=== PATIENT | male | born 1985 | race Caucasian/White ===

== ENCOUNTER 2023-09-12 18:15 | Emergency (ER) | payer BC, SELFPAY ==
--- NOTE | ~2023-09-12 | XR_ITS ---
EXAMINATION: XR chest 2V 09/12/2023 18:36 INDICATION: Cough and shortness of breath. Wheezing. PROCEDURE: 2 view chest COMPARISON: 04/08/2019 FINDINGS: The lungs are clear. The lungs are hyperinflated which is consistent with, but not diagnost ic of chronic obstructive pulmonary disease. The cardiomediastinal silhouette is within normal limits . There are no pleural effusions. There is no pneumothorax suspected. IMPRESSION: 1: NO ACUTE CARDIOPULMONARY DISEASE. Reviewed, dictated and finalized at location A.
--- NOTE | 2023-09-12 18:21 | ED.URI ---
HPI - URI/Sore Throat General Chief Complaint: Upper Respiratory Infection Stated Complaint: Shortness of breath;Cough Source: patient and RN notes reviewed Mode of arrival: ambulatory Limitations: no limitations History of Present Illness HPI Narrative: Patient is a 38-year-old male who presents to the [facility] with complaints of intermittent shortness of breath for the past month and a half. His shortness of breath worsens with exertion. He states that the shortness of breath will be present for about 5-6 days before residing and then starting again a few days later. Patient states that he becomes significantly short of breath even with just walking to the bathroom. He reports a frequent productive cough with yellow sputum for the past month. He denies known fevers or chills. Denies chest pain. States that he will feel chest tightness when he is extremely short of breath. He denies nasal congestion, sore throat, headache. He admits to smoking a pack of cigarettes a day. His respirations are unlabored but they are auditory wheezes present upon [facility] arrival. He denies any respiratory history. Related Data Allergies Allergy/AdvReac Type Severity Reaction Status Date / Time No Known Allergies Allergy Unverified 04/08/19 13:24 Review of Systems Review of Systems: CONSTITUTIONAL: Denies fever, chills, or sweats. EYES: Denies visual changes, redness, or discharge. ENT: Denies otalgia and sore throat CARDIOVASCULAR: Denies chest pain, palpitations, or edema. RESPIRATORY: Reports cough or dyspnea. GASTROINTESTINAL: Denies abdominal pain, nausea, vomiting, or diarrhea. GENITOURINARY: Denies dysuria or hematuria. SKIN: Denies rash or itching. MUSCULOSKELETAL: Denies back pain, joint pain, or myalgia. NEUROLOGIC: Denies headache, numbness, or weakness. Pertinent positives per HPI. [facility] Family History Family History Other Family history of malignant neoplasm Social History Social History Smoking status: Heavy tobacco smoker Alcohol intake: never Comments At the time of my signature, I reviewed and agree with the nursing past medical, surgical, social, and family history. There is no relevant family history pertinent to the patient complaint. Exam Narrative: GENERAL: This is a well-nourished, well-developed patient. HEAD: normocephalic, atraumatic. EYES: Sclera clear/white. Vision is grossly intact. EARS: External ears normal. Hearing grossly intact. NOSE: External nose normal with no obvious nasal discharge, nares without redness, no rhinorrhea. THROAT: Mucous membranes moist, posterior pharynx clear. NECK: Neck supple, non-tender without lymphadenopathy, masses or thyromegaly. CARDIOVASCULAR: Regular rate and rhythm without murmurs, gallops, or rubs. RESPIRATORY: Inspiratory and expiratory wheezes bilaterally. Decreased air movement. GASTROINTESTINAL: Abdomen soft, non-tender, nondistended. Bowel sounds are active. No hepato-splenomegaly, or palpable masses. No guarding. SKIN: Pale. Warm, intact with no suspicious lesions or rash, good texture and turgor. NEURO: awake, alert, and oriented to person, place and time. There were no obvious focal neurologic abnormalities. EXTREMITIES: No clubbing, cyanosis, or edema. No joint tenderness, effusion, or edema noted. Course Course Level of Care: Express Care Visit Vital Signs Vital signs: Vital Signs Temperature 98.1 F 09/12/23 18:25 Pulse Rate 114 H 09/12/23 18:25 Respiratory Rate 16 09/12/23 18:25 Blood Pressure 119/86 09/12/23 18:25 Pulse Oximetry 96 09/12/23 18:25 Temperature 98.1 F 09/12/23 18:25 Pulse Rate 112 H 09/12/23 18:46 Respiratory Rate 20 09/12/23 18:46 Blood Pressure 119/86 09/12/23 18:25 Pulse Oximetry 91 09/12/23 18:46 Oxygen Delivery Room Air 09/12/23 18:46 Reviewed Tra
[2023-09-12 18:25] VITALS: BP 119/86; PULSE 114; RESP 16; TEMP 36.7; O2SAT 96
[2023-09-12] MEDS: methylPREDNISolone SOD SUCC 125 MG VIAL 80 MG IM (18:38)
[2023-09-12 18:39] VITALS: PULSE 109; RESP 22; O2SAT 89
[2023-09-12] MEDS: ALBUTEROL SULFATE NEB 2.5 MG/3 ML INH INHALATION (18:39)
[2023-09-12 18:46] VITALS: PULSE 112; RESP 20; O2SAT 91
[2023-09-12 18:57] VITALS: PULSE 112; RESP 22; O2SAT 91
--- NOTE | 2023-09-12 19:13 | PC.NURSE ---
1910 PARENTS HERE TO PER DIEM PT. PT AMBULATED TO CAR ACCOMPANIED WITH RN. INSTRUCTIONS TO PARENTS TO GO DIRECTLY TO ER. MOTHER DRIVING PATIENT. FATHER FOLLOWING. VOICED UNDERSTANDING. PT DENIED AMBULANCE TRANSFER.
== END 2023-09-12 19:12 | disposition short-term general hospital (02) ==
PROVIDERS: Emergency Provider Nurse Practitioner
DX: R06.02 Shortness of breath (principal); F17.200 Nicotine dependence, unspecified, uncomplicated
CPT/HCPCS: 71046; 94640; 96372; 99213; G0463; J2930

== ENCOUNTER 2023-09-12 19:30 | Emergency (ER) | payer BC, SELFPAY ==
[2023-09-12] VITALS (16 sets, daily range): BP systolic 127–136; BP diastolic 81–96; PULSE 96–112; RESP 11–20; TEMP 36.9; O2SAT 90–96
--- NOTE | ~2023-09-12 | XR_ITS ---
EXAMINATION: XR chest 2V 09/12/2023 20:09 INDICATION: Shortness of breath. PROCEDURE: 2 view chest COMPARISON: 09/12/2023 FINDINGS: The lungs are clear. The lungs are hyperinflated which is consistent with, but not diagnost ic of chronic obstructive pulmonary disease. The cardiomediastinal silhouette is within normal limits . There are no pleural effusions. There is no pneumothorax suspected. IMPRESSION: 1: NO ACUTE CARDIOPULMONARY DISEASE. Reviewed, dictated and finalized at location A.
--- NOTE | ~2023-09-12 | CT_ITS ---
EXAMINATION: CTA chest PE protocol DATE: 09/12/2023 21:00 CDT INDICATION: Dyspnea. Elevated d-dimer. TECHNIQUE: Computed tomographic angiography (CTA) of the chest was performed with 100 mL Omnipaque-35 0 intravenous contrast. The dose-length product was 449.85 mGy-cm. Maximum intensity projection 3D-re constructions of the aorta and other arteries were constructed by the technologist on a separate work station. COMPARISON: None. FINDINGS: No endobronchial lesions. No focal airspace consolidation. No focal airspace consolidation. No significant vascular abnormality. No lymphadenopathy. Study is technically adequate without evide nce for pulmonary embolism. Mild thoracic spondylosis with chronic wedge shaped appearance to midthor acic vertebra. IMPRESSION: 1. No acute cardiopulmonary disease. No evidence for pulmonary embolism. Reviewed, dictated and finalized at location A.
--- NOTE | 2023-09-12 19:35 | ECG_ITS ---
Measurements Intervals [place] Rate: 105 P: 78 VA: 108 QRS: 83 QRSD: 99 T: 64 QT: 353 QTc: 467 Interpretive Statements SINUS TACHYCARDIA WITH SHORT VA INTERVAL POSSIBLE RIGHT ATRIAL ENLARGEMENT NONSPECIFIC ST & T-WAVE ABNORMALITY- ANTEROLAT/INF LEADS BASELINE ARTIFACT- III, AVR, AVL, AVF ABNORMAL ECG COMPARED TO ECG 04/08/2019 15:21:07 [address]IN[address]CARD[address] NOW PRESENT ST-T WAVE ABNORMALITY NOW PRESENT Electronically Signed On 09-13-2023 7:48:49 CDT by Rodolfo Finnegan D.O.
[2023-09-12 20:07] LABS: Basophils Absolute Auto 0.1 K/mm3 (0.0-0.1); Basophils Percent Auto 1.3 % (0.2-1.2); Eosinophils Absolute Auto 0.1 K/mm3 (0-0.3); Eosinophils Percent Auto 1.1 % (0-4.4); Hematocrit 50.7 % (42.0-52.0); Hemoglobin 16.6 g/dL (14.0-18.0); Immature Granulocyte Absolute 0.05 K/mm3 (0.00-0.031); Immature Granulocyte Percent A 0.5 % (0-0.5); Lymphocytes Absolute Auto 0.93 K/mm3 (0.9-3.2); Lymphocytes Percent Auto 9.6 % (18.3-44.2); Mean Corpuscular HGB Conc 32.7 g/dl (32-36); Mean Corpuscular Hemoglobin 32.2 pg (26-34); Mean Corpuscular Volume 98.4 fl (80-100); Monocytes Absolute Auto 0.5 K/mm3 (0.1-0.6); Neutrophils Percent Auto 82.5 % (45.5-73.1); Platelet Count Result 328 k/mm3 (150-375); Red Blood Count 5.15 M/mm3 (4.6-6.20); Red Cell Distribution Width 13.3 % (11.5-14.5); White Blood Count 9.7 K/mm3 (4.5-10.0)
[2023-09-12 20:17] LABS: Alanine Aminotransferase 16 U/L (6-50); Alkaline Phosphatase 84 U/L (38-126); Anion Gap 16 mmol/L (8-16); Aspartate Amino Transferase 24 U/L (17-59); Bilirubin,Total 0.9 mg/dL (0.2-1.3); Blood Urea Nitrogen 10 mg/dL (9-20); Calcium 10.1 mg/dL (8.4-10.2); Carbon Dioxide 21 mmol/L (22-30); Chloride 101 mmol/L (98-107); Estimated CRCL calculation 127 ml/min; Estimated Glomerular Filt Rate > 60; Glucose 123 mg/dL (65-110); Potassium 3.7 mmol/L (3.4-5.0); Sodium 138 mmol/L (137-145)
[2023-09-12 20:26] LABS: D Dimer 0.56 ug/mL (<0.48)
--- NOTE | 2023-09-12 20:51 | ED.GENADULT ---
HPI - General Adult General Chief complaint: Shortness of Breath/Dyspnea <Bennie Barriga PA-C - Last Filed: 09/13/23 01:04> Stated complaint: sent from with SOB <FELI Zaragoza Last Filed: 09/13/23 01:04> Time Seen by Provider: 09/12/23 19:40 <Bennie Barriga PA-C - Last Filed: 09/13/23 01:04> Source: patient <FELI Zaragoza Last Filed: 09/13/23 01:04> Mode of arrival: ambulatory <FELI Zaragoza Last Filed: 09/13/23 01:04> Limitations: no limitations <FELI Zaragoza Last Filed: 09/13/23 01:04> History of Present Illness HPI narrative: This is a 38-year-old male who presents to the ED with chief complaint of shortness of breath on exertion for the past 6 weeks and worse in the last week. Reports he feels wheezing on occasion. He is a long-term smoker. Smokes at least 1 pack/day. Reports some recent cough as well. He was seen at urgent care today and given breathing treatments with decent relief of symptoms but was desaturating on walking test into the 88 range, so he was referred here. Denies palpitations, chest pain, leg swelling, orthopnea, abdominal pain. <Bennie Barriga PA-C - Last Filed: 09/13/23 01:04> Related Data Allergies/adverse reactions: Allergies Allergy/AdvReac Type Severity Reaction Status Date / Time No Known Allergies Allergy Unverified 09/12/23 19:30 <Bennie Barriga PA-C - Last Filed: 09/13/23 01:04> Review of Systems Review of Systems: All systems as dictated in HPI <Bennie Barriga PA-C - Last Filed: 09/13/23 01:04> [facility] Family History Family History: Family History Other Family history of malignant neoplasm <FELI Zaragoza Last Filed: 09/13/23 01:04> Social History Social History: Social History Smoking status: Heavy tobacco smoker Alcohol intake: never <Bennie Barriga PA-C - Last Filed: 09/13/23 01:04> Exam Narrative: GENERAL: Well-appearing, well-nourished, and in no acute distress. HEAD: Normocephalic, atraumatic. EYES: PERRLA and EOMI. ENT: Nares clear, no rhinorrhea or epistaxis. Mucous membranes moist. Mildly erythematous posterior oropharynx. Oropharynx without tonsillar hypertrophy exudate or other lesions. NECK: Supple. No adenopathy or masses. CHEST: No respiratory distress. Faint wheeze heard in the expiratory phase of the left lower lung field, otherwise no adventitious breath sounds heard. Saturating 94% on room air. HEART: Regular rate and rhythm. No murmur heard. Normal peripheral pulses. ABDOMEN: Soft, nontender, nondistended, normal active bowel sounds. MSK: Normal range of motion. No edema. SKIN: Warm, dry, no rash. NEURO: Alert and oriented x3. No focal deficits. PSYCH: Normal mood and affect. <Bennie Barriga PA-C - Last Filed: 09/13/23 01:04> Course SPRAYER MACHINE/PA Physician Supervision This visit was performed by both a physician and an APC. I performed all aspects of the MDM as documented. <Ania Villanueva MD - Last Filed: 09/13/23 00:08> Vital Signs Vital signs: Vital Signs Temperature 98.4 F 09/12/23 19:34 Pulse Rate 112 H 09/12/23 19:34 Respiratory Rate 20 09/12/23 19:34 Blood Pressure 136/86 09/12/23 19:34 Pulse Oximetry 93 09/12/23 19:34 Oxygen Delivery Room Air 09/12/23 19:34 Temperature 98.4 F 09/12/23 19:34 Pulse Rate 104 H 09/12/23 22:30 Respiratory Rate 18 09/12/23 23:05 Blood Pressure 129/81 09/12/23 20:12 Pulse Oximetry 96 09/12/23 22:45 Oxygen Delivery Room Air 09/12/23 19:34 <Bennie Barriga PA-C - Last Filed: 09/13/23 01:04> Vital Signs Temperature 98.4 F 09/12/23 19:34 Pulse Rate 112 H 09/12/23 19:34 Respiratory Rate 20 09/12/23 19:34 Blood Pressure 136/86 09/12/23 19:34 Pulse Oximetry 93 09/12/23 19:34 Oxygen Delivery Room Air 09/12/23
[2023-09-12 22:32] LABS: Influenza A QL RT-PCR Negative (Negative); Influenza B QL RT-PCR Negative (Negative); RSV RNA, RT-PCR Negative (Negative); SARS-CoV-2 RNA PCR Negative (Negative)
--- NOTE | 2023-09-12 22:44 | PC.NURSE ---
walking oxygen assessment patient oxygen dropped to 87%. Bennie Barriga notified. patient felt slightly sob towards end of walk around nursing station.
== END 2023-09-12 23:41 | disposition left against medical advice (07) ==
PROVIDERS: Student in an Organized Health Care Education/Training Program; Emergency Provider Physician Assistant
DX: R06.02 Shortness of breath (principal); Z20.822 Contact with and (suspected) exposure to COVID-19; F17.210 Nicotine dependence, cigarettes, uncomplicated; R00.0 Tachycardia, unspecified; R94.31 Abnormal electrocardiogram [ECG] [EKG]
CPT/HCPCS: 36415; 71046; 71275; 80053; 85025; 85380; 87637; 93005; 94640; 96372; 99284; J2930; Q9967

== ENCOUNTER 2024-10-05 20:28 | Emergency (ER) | payer OTHER, SELFPAY ==
[2024-10-05] VITALS (17 sets, daily range): BP systolic 94–133; BP diastolic 58–98; PULSE 80–97; RESP 12–30; TEMP 36.7–36.8; O2SAT 92–100
--- NOTE | ~2024-10-05 | XR_ITS ---
EXAM: XR foot RT min 3V DATE: 10/05/2024 22:53 HISTORY: injury . COMPARISON: None available. FINDINGS: Subjectively decreased mineralization. Transverse fracture at the neck of the right fourth metatarsal with 3 mm medial displacement and minimal angulation. Oblique fracture of the neck of the right fifth metatarsal with 3 mm anteromedial displacement and minimal angulation. No lytic or blast ic lesion. Hallux valgus. Mild degenerative change at the first MTP joint. No erosion or periosteal c hange. Soft tissues within normal limits. IMPRESSION: Mildly displaced fractures of the distal right fourth and fifth metatarsals. Reviewed, dictated and finalized at location K. [facility] AND HEARING CLINIC DIRECTOR IMPRESSION: Mildly displaced fractures of the distal right fourth and fifth met atarsals.
--- NOTE | ~2024-10-05 | XR_ITS ---
EXAMINATION: XR chest 1V portable Exam Date/Time: 10/05/2024 22:47 INTERVENTION ANALYST HISTORY: sob Comparison: 09/12/2023. RESULT: Lines, tubes, and devices: None. Lungs and pleura: Clear. Cardiomediastinal silhouette: Stable. Other: No acute osseous or upper abdominal finding. IMPRESSION: No acute cardiopulmonary process. Reviewed, dictated and finalized at location K. RVENTION ANALYST
--- NOTE | 2024-10-05 21:49 | PC.NURSE ---
After triage pt's father stated he was passed out at home and out of it prior to coming to ED. Dad is concerned for potential drug use as pt is a recovering heroin addict.
--- NOTE | 2024-10-05 22:35 | ECG_ITS ---
Test Date: 2024-10-05 23:08:14 Measurements Intervals [place] Rate: 85 P: 71 [place]: 157 QRS: 67 QRSD: 84 T: 53 QT: 384 QTc: 458 Interpretive Statements SINUS RHYTHM POSSIBLE LEFT ATRIAL ENLARGEMENT POSSIBLE RIGHT VENTRICULAR CONDUCTION DELAY BORDERLINE ST-T WAVE ABNORMALITY- ANT/INF LEADS BORDERLINE ECG No previous ECG available for comparison Electronically Signed On 10-06-2024 06:07:03 5TH GRADE TEACHER by Rodolfo Finnegan D.O.
--- NOTE | 2024-10-05 22:54 | ED_ITS ---
HPI - General Adult General Chief complaint: Shortness of Breath/Dyspnea Stated complaint: SOB, SOB, ran out of home oxygen Time Seen by Provider: 10/05/24 22:10 History of Present Illness HPI narrative: Patient is a 39-year-old male who presents to the emergency department this evening complaining of a shortness of breath and right foot pain. Patient states that he does have a history of COPD which she was diagnosed with this year and states that he uses inhalers at home along with albuterol as needed and has some home oxygen which she was only as needed. Patient states that 4 days ago he rolled his right foot and has been having some pain to the right foot. Patient does have some bruising noted to the distal aspect of the lateral right foot. Patient admits that he has been walking on the foot but it does elicit pain. He is currently denying any chest pain, nausea, vomiting, abdominal pain, and denies any additional symptoms or concerns at this time. Patient was noted to be satting 96% on room air during triage. Related Data Allergies Allergy/AdvReac Type Severity Reaction Status Date / Time No Known Allergies Allergy Verified 10/05/24 22:36 Review of Systems Review of Systems: All systems are reviewed and are negative unless stated otherwise in the HPI. [facility] Family History Family History Other Family history of malignant neoplasm Social History Social History Smoking status: Heavy tobacco smoker Alcohol intake: never Exam Narrative: General: Alert, awake, afebrile, in no acute distress. HEENT: PERRL, no rhinorrhea, no post nasal drip, oropharynx clear. Neck: Trachea midline, no JVD, no lymphadenopathy. Cardiovascular: Regular rate and rhythm, no murmurs, rubs or gallops, no peripheral edema. Respiratory: Clear to auscultation bilaterally, no tachypnea, no wheezing, no rhonchi, no rubs, no respiratory distress. Abdomen: Soft, nontender, nondistended, no rebound, no guarding, no peritoneal signs. Musculoskeletal: No joint swelling or deformity, normal muscle tone, ecchymosis and tenderness to palpation noted over the neck of the 4th and 5th right metatarsals. Skin: No rashes or petechia, no signs of infection. Psychiatric: Alert and oriented, normal behavior and judgment for situation. Neurological: Alert and oriented to person, place, and time. Follows all commands. No focal deficits, speech is clear and fluent. Course Vital Signs Vital signs: Vital Signs Temperature 98.1 F 10/05/24 20:30 Pulse Rate 86 10/05/24 20:30 Respiratory Rate 16 10/05/24 20:30 Blood Pressure 114/92 H 10/05/24 20:30 Pulse Oximetry 96 10/05/24 20:30 Oxygen Delivery Room Air 10/05/24 20:30 Temperature 98.3 F 10/05/24 22:07 Pulse Rate 91 10/05/24 23:54 Respiratory Rate 20 10/05/24 23:54 Blood Pressure 101/73 10/05/24 23:54 Pulse Oximetry 100 10/05/24 23:16 Oxygen Delivery Room Air 10/05/24 22:31 Medical Decision Making MDM Narrative Medical decision making narrative: The patient was evaluated by myself in the emergency department. History is obtained from patient who is an independent historian and physical exam was performed. External medical records were reviewed at this time. IV was established and pertinent tests were ordered. Patient was administered DuoNeb breathing treatment and 125 mg of IV Solu- Medrol. Laboratory results obtained revealing no acute process. Imaging studies obtained included chest x-ray which was independently interpreted by me revealing no acute cardiopulmonary process, which is pending final radiology interpretation. Right foot x-rays were also obtained at this time and bili interpreted by me revealing mildly displaced fractures of the distal right 4th and 5th metatarsals over the metatarsal neck. Patient was placed in a posterior short leg splint at this time and informed that he will need to follow-up with orthopedics. Differential diagnosis considerations include COPD exacerbation, acute viral syndrome, infectious process such as pneumonia Comorbidities impacting this visit include history of COPD.. I have evaluated and discussed social determinants of health with the patient that could potentially impact subsequent diagnosis and treatment plans. On repeat assessment of the patient, reevaluation revealed that the patient is doing well and is in no acute distress. Patient symptoms have improved since he arrived to our emergency department. Repeat vital signs were all reviewed and noted to be stable. Patient has been able to maintain his O2 sats above 90% while ambulating. Differential diagnosis and treatment plan were discussed with the patient at bedside. Patient agrees with discussion and after shared medical decision making agrees with discharge. All questions were answered to the patient's satisfaction. Patient will follow up with his primary care physician and Orthopedics in 3-5 days. A script for Medrol Dosepak present patient's pharmacy and he was instructed to take as prescribed. Patient was provided with strict return precautions and instructed to return to the emergency department if any new or worsening symptoms develop. The patient was discharged in stable condition. Vital Signs Vital Signs: Vital Signs Temperature 98.1 F 10/05/24 20:30 Pulse Rate 86 10/05/24 20:30 Respiratory Rate 16 10/05/24 20:30 Blood Pressure 114/92 H 10/05/24 20:30 Pulse Oximetry 96 10/05/24 20:30 Oxygen Delivery Room Air 10/05/24 20:30 Temperature 98.3 F 10/05/24 22:07 Pulse Rate 91 10/05/24 23:54 Respiratory Rate 20 10/05/24 23:54 Blood Pressure 101/73 10/05/24 23:54 Pulse Oximetry 100 10/05/24 23:16 Oxygen Delivery Room Air 10/05/24 22:31 Lab Data 10/05/24 23:17 10/05/24 23:17 Labs: Lab Results 10/05/24 Range/Units 23:17 WBC 11.3 H (4.5-10.0) K/mm3 RBC 4.02 L (4.6-6.20) M/mm3 Hgb 13.1 L D (14.0-18.0) g/dL Hct 40.1 L (42.0-52.0) % MCV 99.8 (80-100) fl MCH 32.6 (26-34) pg MCHC 32.7 (32-36) g/dl RDW 13.2 (11.5-14.5) % Plt Count 320 (150-375) k/mm3 MPV 10.2 (7.4-10.4) fl Immature Gran % (Auto) 0.4 (0-0.5) % Neut % (Auto) 78.6 H (45.5-73.1) % Lymph % (Auto) 11.0 L (18.3-44.2) % [place] % (Auto) 7.3 (2.6-8.5) % Eos % (Auto) 1.9 (0-4.4) % Baso % (Auto) 0.8 (0.2-1.2) % Lymph # (Auto) 1.24 (0.9-3.2) K/mm3 [place] # (Auto) 0.8 H (0.1-0.6) K/mm3 Eos # (Auto) 0.2 (0-0.3) K/mm3 Baso # (Auto) 0.1 (0.0-0.1) K/mm3 Abs Immat Gran (auto) 0.04 H (0.00-0.031) K/mm3 Absolute Neuts (auto) 8.9 H (1.3-6.7) K/mm3 Absolute Nucleated RBC 0.000 (0.0-0.012) K/mm3 Nucleated RBC % 0.0 (0.0-0.2) % Sodium 141 (137-145) mmol/L Potassium 3.6 (3.4-5.0) mmol/L Chloride 108 H (98-107) mmol/L Carbon Dioxide 27 (22-30) mmol/L Anion Gap 6 (4-12) mmol/L BUN 9 (9-20) mg/dL Creatinine 0.60 L (0.7-1.3) mg/dL Estim Creat Clear Calc 153 ml/min Estimated GFR > 60 (59 - ) Glucose 98 (65-110) mg/dL Calcium 9.3 (8.4-10.2) mg/dL Total Bilirubin 1.0 (0.2-1.3) mg/dL AST 17 (17-59) U/L ALT 11 (6-50) U/L Alkaline Phosphatase 67 (38-126) U/L Total Protein 7.0 (6.3-8.2) g/dL Albumin 4.0 (3.5-5.1) g/dL Discharge Plan Discharge Clinical Impression: Foot fracture, right, COPD exacerbation Patient Disposition: Home, Self-Care Condition: Improved Instructions: Antibiotic Form, Foot Fracture in Adults (ED), COPD (Chronic Obstructive Pulmonary Disease) (DC) Additional Instructions: Please follow-up with your orthopedic surgeon you were provided with today regarding your right metatarsal fractures within the next 3-5 days. He replaced and a posterior short leg splint and instructed to maintain your right lower extremity as nonweightbearing until you follow-up with orthopedics. You also provided with a Medrol Dosepak to take for your COPD exacerbation and instructed to take as prescribed. Return to the emergency department if any new or worsening symptoms develop and follow-up with your primary care physician within the next 3-5 days. Prescriptions: New methylprednisolone [Medrol (Avtar)] 4 mg tablets,dose pack See Rx Instructions .ROUTE .COMPLEX Qty: 21 0RF Rx Instructions: orally per package directions No Action albuterol sulfate 90 mcg/actuation HFA aerosol inhaler 2 puff inhalation QID PRN (Reason: shortness of breath or wheezing) Qty: 6.7 0RF prednisone 20 mg tablet 40 mg PO DAILY 5 Days Qty: 10 0RF Follow-up/Referrals: PHYSICIAN,PERSONAL LINES ADVISOR [Primary Care Provider] - Jasvir Jean-Baptiste MD [Physician] - 1 Week Rubens Marin MD [Physician] - 3 Days Time of Disposition: 00:33
[2024-10-05] MEDS: IPRATROPIUM 0.5 MG/ALBUTEROL SULFATE 2.5 MG AMPUL.NEB 3 ML INHALATION (23:09)
[2024-10-05] MEDS: methylPREDNISolone SOD SUCC 125 MG VIAL IV PUSH (23:19)
[2024-10-05 23:26] LABS: Basophils Absolute Auto 0.1 K/mm3 (0.0-0.1); Basophils Percent Auto 0.8 % (0.2-1.2); Eosinophils Absolute Auto 0.2 K/mm3 (0-0.3); Eosinophils Percent Auto 1.9 % (0-4.4); Hematocrit 40.1 % (42.0-52.0); Hemoglobin 13.1 g/dL (14.0-18.0); Immature Granulocyte Absolute 0.04 K/mm3 (0.00-0.031); Immature Granulocyte Percent A 0.4 % (0-0.5); Lymphocytes Absolute Auto 1.24 K/mm3 (0.9-3.2); Mean Corpuscular HGB Conc 32.7 g/dl (32-36); Mean Corpuscular Hemoglobin 32.6 pg (26-34); Mean Corpuscular Volume 99.8 fl (80-100); Mean Platelet Volume 10.2 fl (7.4-10.4); Monocytes Absolute Auto 0.8 K/mm3 (0.1-0.6); Monocytes Percent Auto 7.3 % (2.6-8.5); Neutrophils Absolute Auto 8.9 K/mm3 (1.3-6.7); Neutrophils Percent Auto 78.6 % (45.5-73.1); Platelet Count Result 320 k/mm3 (150-375); Red Blood Count 4.02 M/mm3 (4.6-6.20); Red Cell Distribution Width 13.2 % (11.5-14.5); White Blood Count 11.3 K/mm3 (4.5-10.0)
[2024-10-05 23:37] LABS: Alanine Aminotransferase 11 U/L (6-50); Alkaline Phosphatase 67 U/L (38-126); Anion Gap 6 mmol/L (4-12); Aspartate Amino Transferase 17 U/L (17-59); Blood Urea Nitrogen 9 mg/dL (9-20); Calcium 9.3 mg/dL (8.4-10.2); Carbon Dioxide 27 mmol/L (22-30); Chloride 108 mmol/L (98-107); Estimated CRCL calculation 153 ml/min; Estimated Glomerular Filt Rate > 60; Glucose 98 mg/dL (65-110); Potassium 3.6 mmol/L (3.4-5.0); Sodium 141 mmol/L (137-145)
[2024-10-06 01:59] VITALS: BP 106/69; PULSE 88; RESP 15; O2SAT 98
[2024-10-06 02:28] VITALS: BP 106/69; PULSE 88; RESP 15; O2SAT 98
--- NOTE | 2024-10-06 02:31 | PC.NURSE ---
Tech applied short leg splint on right leg. pulse intact on extremity
== END 2024-10-06 02:31 | disposition home or self-care (01) ==
PROVIDERS: Emergency Provider Emergency Medicine
DX: S92.341A Displaced fracture of fourth metatarsal bone, right foot, initial encounter for closed fracture (principal); S92.351A Displaced fracture of fifth metatarsal bone, right foot, initial encounter for closed fracture; J44.1 Chronic obstructive pulmonary disease with (acute) exacerbation; X50.0XXA Overexertion from strenuous movement or load, initial encounter
CPT/HCPCS: 36415; 71045; 73630; 80053; 85025; 93005; 94640; 96374; 99284; J2919

== ENCOUNTER 2024-10-19 09:23 | Outpatient (CLI) | payer OTHER, SELFPAY ==
[2024-10-19 10:10] LABS: Basophils Absolute Auto 0.1 K/mm3 (0.0-0.1); Basophils Percent Auto 0.6 % (0.2-1.2); Eosinophils Absolute Auto 0.7 K/mm3 (0-0.3); Eosinophils Percent Auto 3.1 % (0-4.4); Hematocrit 47.2 % (42.0-52.0); Hemoglobin 15.8 g/dL (14.0-18.0); Immature Granulocyte Absolute 0.15 K/mm3 (0.00-0.031); Immature Granulocyte Percent A 0.7 % (0-0.5); Lymphocytes Absolute Auto 2.09 K/mm3 (0.9-3.2); Lymphocytes Percent Auto 9.3 % (18.3-44.2); Mean Corpuscular HGB Conc 33.5 g/dl (32-36); Mean Corpuscular Hemoglobin 32.4 pg (26-34); Mean Corpuscular Volume 96.7 fl (80-100); Mean Platelet Volume 11.5 fl (7.4-10.4); Monocytes Absolute Auto 1.4 K/mm3 (0.1-0.6); Monocytes Percent Auto 6.2 % (2.6-8.5); Neutrophils Percent Auto 80.1 % (45.5-73.1); Platelet Count Result 252 k/mm3 (150-375); Red Blood Count 4.88 M/mm3 (4.6-6.20); Red Cell Distribution Width 13.1 % (11.5-14.5); White Blood Count 22.4 K/mm3 (4.5-10.0)
[2024-10-19 10:43] LABS: Alanine Aminotransferase 14 U/L (6-50); Albumin Level 4.4 g/dL (3.5-5.1); Alkaline Phosphatase 74 U/L (38-126); Anion Gap 8 mmol/L (4-12); Aspartate Amino Transferase 20 U/L (17-59); Bilirubin,Total 0.9 mg/dL (0.2-1.3); Blood Urea Nitrogen 28 mg/dL (9-20); Calcium 9.6 mg/dL (8.4-10.2); Carbon Dioxide 34 mmol/L (22-30); Chloride 93 mmol/L (98-107); Cholesterol 146 mg/dL (0-200); Estimated Glomerular Filt Rate > 60; Glucose 108 mg/dL (65-110); HDL Direct 69 mg/dL; LDL Cholesterol Direct 54 mg/dL; Potassium 2.7 mmol/L (3.4-5.0); Sodium 135 mmol/L (137-145); Triglycerides 160 mg/dL (<150)
[2024-10-19 11:22] LABS: Hemoglobin A1C 5.2 % (<5.7)
[2024-10-19 11:29] LABS: Folic Acid 5.9 ng/mL (2.76->20)
[2024-10-19 11:55] LABS: Free T4 Free Thyroxine 2.11 ng/dL (0.78-2.19)
== END 2024-10-19 09:24 | disposition home or self-care (01) ==
PROVIDERS: PCP Physician Assistant; Visit Provider Physician Assistant
DX: Z13.220 Encounter for screening for lipoid disorders (principal); Z13.1 Encounter for screening for diabetes mellitus; Z79.891 Long term (current) use of opiate analgesic
CPT/HCPCS: 36415; 80053; 80061; 82607; 82746; 83036; 84439; 84443; 85025

== ENCOUNTER 2024-10-22 09:41 | Outpatient (CLI) | payer OTHER, SELFPAY ==
--- OUTSIDE RECORDS SUMMARY | 2024-10-22 09:49 | XMS_ITS | Data Portability ---
Author Organization [facility] [employer], Main Office Address [address] [place] [address] Assessment Encounter Date Assessment Date Assessment LastModified by Organization Details LastModified Time 03/19/2024 03/19/2024 Assessment: Nicotine smoke: 11/12 ppd 2002-present = 10.5 pack years Cough Dyspnea Plan: The following were reviewed and explained to the patient: primary care/referral note Chest CT 09/12/23 no acute disease, no P. E. Nicotine cessation counseling provided for 4 minutes. [place] for quitting nicotine include getting ready, getting support and encouragement, learning new skills and behaviors and being prepared to handle slips. Tips for dealing with cravings provided. Prevention of subsequent illnesses from nicotine addiction discussed. Comorbidities include but are not limited to hypertension, cerebrovascular disease, coronary heart disease, congestive heart failure, hyperlipidemia, COPD/asthma, peptic ulcer disease, esophagitis/gastri tis, and osteoporosis. Therapy options offered include: Quitting by total abstinence Receiving nicotine replacement therapy Undergoing hypnosis Filling a bupropion or varenicline prescription Enrolling in Quit For Life program Registering at [email or web address] Making a call to 6-140-RMAG-NOW ( ). A strong, clear, personalized message was given to the patient to quit smoking. The patient was urged to set a quit date. We discussed patient's barriers to quitting and I will be of assistance when patient is ready to quit. I encouraged patient to inform friends and family of plans to quit with a request for support. I encouraged the patient to remove all cigarettes from the environment. We reviewed any previous quit attempts and lessons learned from them. I encouraged total abstinence from smoking and advised the patient that drinking alcohol and/or associating with other smokers are associated with failure or relapse. Patient can enroll in [facility]'s smoking cessation class through Gay Carl RN at . Enrollment is free and classes are held every saturday of the month from 1:30 pm to 2:30 pm at the conference room next to the cafeteria on the ground floor. Cough/Dyspnea workup will be done as follows: Respiratory allergen panel for [facility] Serum IgE Serum total IgG, IgG1, IgG2, IgG3, IgG4 Wjfib-1-gxvakrnbme n phenotype and level TB stimulated gamma interferon B-type natriuretic peptide (BNP) Eosinophil count Complete pulmonary function testing (PFT) Continue Albuterol HFA as needed. Continue Symbicort 80/4.5 mcg 2 puffs BID. Gargle after use. The patient does not know how to accurately administer the inhalers. Today, the patient was shown how to take these medications. The proper technique for delivering these medications was instructed. The patient expressed a clear understanding and demonstrated back how to use these medications. Without the proper technique, the patient will not reap the benefits of these medications as the contents will not reach the lower airways as intended to be. Adherence to therapy is advocated. Nonadherence may lead to treatment failure, further progression of the condition, and other complications. Hospitals admissions are often the result of individuals not taking prescription medications accurately. Alternatively, greater adherence to medication regimens have shown to lower rates of hospitalization and decrease total medical costs in patients with chronic medical conditions. Advocated influenza vaccination annually and pneumonia vaccination HEIDI. Encouraged patient to adjust caloric intake to maintain/achieve ideal body weight, emphasizing on fruits, vegetables, whole grains, and fat-free or low-fat products. These include lean meats, poultry, fish, beans, eggs, and nuts and foods that are low in saturated fats, trans-fats, cholesterol, salt (sodium), and glycemic index. Stressed the importance of regular exercise up to the patient's capacity limits. In this case, we recommend 20 min daily walking, 2 days a week of resistance training. Patient to monitor BP daily and bring records to PCP for further management. Follow-up: 1 week PFT Not available 04/28/2024 13:26:18 04/28/2024 04/28/2024 Assessment: Nicotine smoke: /2 ppd 2002-present = 10.5 pack years Severe COPD Plan: The following were reviewed and explained to the patient: Chest CT 09/12/23 no acute disease, no P. E. Lab data 03/19/24 multiple environmental allergies PFT 04/28/24 FEV1 1.36 L 32%, BD -50 mL = -4% Patient's oxygen saturation at rest: 1. 85% on room air 2. 86% at 1 Lpm NC 3. 88% at 2 Lpm NC 4. 90% at 3 Lpm NC Nicotine cessation counseling provided. [place] for quitting nicotine include getting ready, getting support and encouragement, learning new skills and behaviors and being prepared to handle slips. Tips for dealing with cravings provided. Prevention of subsequent illnesses from nicotine addiction discussed. Comorbidities include but are not limited to hypertension, cerebrovascular disease, coronary heart disease, congestive heart failure, hyperlipidemia, COPD/asthma, peptic ulcer disease, esophagitis/gastri tis, and osteoporosis. Therapy options offered include: Quitting by total abstinence Receiving nicotine replacement therapy Undergoing hypnosis Filling a bupropion or varenicline prescription Enrolling in Quit For Life program Registering at [email or web address] Making a call to 1-423-XINQ-NOW ( ). A strong, clear, personalized message was given to the patient to quit smoking. The patient was urged to set a quit date. We discussed patient's barriers to quitting and I will be of assistance when patient is ready to quit. I encouraged patient to inform friends and family of plans to quit with a request for support. I encouraged the patient to remove all cigarettes from the environment. We reviewed any previous quit attempts and lessons learned from them. I encouraged total abstinence from smoking and advised the patient that drinking alcohol and/or associating with other smokers are associated with failure or relapse. Patient can enroll in [facility]'s smoking cessation class through Gay Carl RN at . Enrollment is free and classes are held every saturday of the month from 1:30 pm to 2:30 pm at the conference room next to the cafeteria on the ground floor. Pulmonary rehabilitation may be included in the management of patients with chronic obstructive pulmonary disease (COPD). For respiratory diseases different from COPD, there have been no formal statements regarding patient selection. Pulmonary rehabilitation consists of assessment, exercise, education, and emotional support. It covers the goals of rehabilitation, the techniques of breathing, the necessity of nicotine cessation, the strategies to deal with panic attacks, the rationale of pulmonary medications, and the importance of nutrition. As the patient learns to live with his pulmonary condition through exercise and education, the patient will regain confidence with his abilities and feel improvement in his overall quality of life. Contraindications to pulmonary rehabilitation are infrequent, but include conditions that would place the patient at increased risk during exercise (e.g., uncontrolled cardiac disease, such as chronic heart failure). The patient's FEV1 is 32%. The patient will be enrolled in pulmonary rehabilitation pending insurance coverage. General concepts of pulmonary rehabilitation were explained. Educational video was shown. Continue Albuterol HFA as needed. Breztri 160/9/4.8 mcg is non-formulary. Continue Symbicort HFA but increased from 80/4.5 mcg to 160/4.5 mcg 2 puffs BID. Gargle after use. Start Spiriva Respimat 2.5 mcg 2 puffs daily. The patient does not know how to accurately administer the inhalers. Today, the patient was shown how to take these medications. The proper technique for delivering these medications was instructed. The patient expressed a clear understanding and demonstrated back how to use these medications. Without the proper technique, the patient will not reap the benefits of these medications as the contents will not reach the lower airways as intended to be. Adherence to therapy is advocated. Nonadherence may lead to treatment failure, further progression of the condition, and other complications. Hospitals admissions are often the result of individuals not taking prescription medications accurately. Alternatively, greater adherence to medication regimens have shown to lower rates of hospitalization and decrease total medical costs in patients with chronic medical conditions. Advocated influenza vaccination annually and pneumonia vaccination HEIDI. Encouraged patient to adjust caloric intake to maintain/achieve ideal body weight, emphasizing on fruits, vegetables, whole grains, and fat-free or low-fat products. These include lean meats, poultry, fish, beans, eggs, and nuts and foods that are low in saturated fats, trans-fats, cholesterol, salt (sodium), and glycemic index. Stressed the importance of regular exercise up to the patient's capacity limits. In this case, we recommend 20 min daily walking, 2 days a week of resistance training. Patient to monitor BP daily and bring records to PCP for further management. Follow-up: 3 months, July 2024 Not available 04/28/2024 13:45:34 07/29/2024 07/29/2024 Assessment: Nicotine smoke: 1/2 ppd 2002-present = 10.5 pack years Severe COPD Plan: The following were reviewed and explained to the patient: Chest CT 09/12/23 no acute disease, no P. E. Lab data 03/19/24 multiple environmental allergies PFT 04/28/24 FEV1 1.36 L 32%, BD -50 mL = -4% Nicotine cessation counseling provided. [place] for quitting nicotine include getting ready, getting support and encouragement, learning new skills and behaviors and being prepared to handle slips. Tips for dealing with cravings provided. Prevention of subsequent illnesses from nicotine addiction discussed. Comorbidities include but are not limited to hypertension, cerebrovascular disease, coronary heart disease, congestive heart failure, hyperlipidemia, COPD/asthma, peptic ulcer disease, esophagitis/gastri tis, and osteoporosis. Therapy options offered include: Quitting by total abstinence Receiving nicotine replacement therapy Undergoing hypnosis Filling a bupropion or varenicline prescription Enrolling in Quit For Life program Registering at [email or web address] Making a call to 1-243-RPBF-NOW ( ). A strong, clear, personalized message was given to the patient to quit smoking. The patient was urged to set a quit date. We discussed patient's barriers to quitting and I will be of assistance when patient is ready to quit. I encouraged patient to inform friends and family of plans to quit with a request for support. I encouraged the patient to remove all cigarettes from the environment. We reviewed any previous quit attempts and lessons learned from them. I encouraged total abstinence from smoking and advised the patient that drinking alcohol and/or associating with other smokers are associated with failure or relapse. Patient can enroll in [facility]'s smoking cessation class through Gay Carl RN at . Enrollment is free and classes are held every saturday of the month from 1:30 pm to 2:30 pm at the conference room next to the cafeteria on the ground floor. Pulmonary rehabilitation may be included in the management of patients with chronic obstructive pulmonary disease (COPD). For respiratory diseases different from COPD, there have been no formal statements regarding patient selection. Pulmonary rehabilitation consists of assessment, exercise, education, and emotional support. It covers the goals of rehabilitation, the techniques of breathing, the necessity of nicotine cessation, the strategies to deal with panic attacks, the rationale of pulmonary medications, and the importance of nutrition. As the patient learns to live with his pulmonary condition through exercise and education, the patient will regain confidence with his abilities and feel improvement in his overall quality of life. Contraindications to pulmonary rehabilitation are infrequent, but include conditions that would place the patient at increased risk during exercise (e.g., uncontrolled cardiac disease, such as chronic heart failure). The patient's FEV1 is 32%. The patient is in pulmonary rehabilitation but withdrew temporarily due to rib cage pain. General concepts of pulmonary rehabilitation were explained. He is advised to return to pulmonary rehabilitation program on a 2 x weekly instead of 3 x weekly schedule. Continue Albuterol HFA as needed. Change Symbicort HFA 160/4.5 mcg and Spiriva Respimat 2.5 mcg to Breztri 160/9/4.8 mcg 2 puffs BID. Gargle after use. The patient does not know how to accurately administer the inhalers. Today, the patient was shown how to take these medications. The proper technique for delivering these medications was instructed. The patient expressed a clear understanding and demonstrated back how to use these medications. Without the proper technique, the patient will not reap the benefits of these medications as the contents will not reach the lower airways as intended to be. Adherence to therapy is advocated. Nonadherence may lead to treatment failure, further progression of the condition, and other complications. Hospitals admissions are often the result of individuals not taking prescription medications accurately. Alternatively, greater adherence to medication regimens have shown to lower rates of hospitalization and decrease total medical costs in patients with chronic medical conditions. Advocated influenza vaccination annually and pneumonia vaccination HEIDI. Encouraged patient to adjust caloric intake to maintain/achieve ideal body weight, emphasizing on fruits, vegetables, whole grains, and fat-free or low-fat products. These include lean meats, poultry, fish, beans, eggs, and nuts and foods that are low in saturated fats, trans-fats, cholesterol, salt (sodium), and glycemic index. Stressed the importance of regular exercise up to the patient's capacity limits. In this case, we recommend 20 min daily walking, 2 days a week of resistance training. Patient to monitor BP daily and bring records to PCP for further management. Follow-up: 9 months, April 2025 [email or web address] Not available 07/29/2024 15:09:07 Plan of Treatment Reminders Order Date Submit Date Provider Last Modified By Organization Details Last Modified Time Details Appointments Any 30 2024 01:30P Lexy Milan MD Not available Not available Not available Lab alpha-1-a ntitrypsi n (aat) phenotype , serum 2023 024 [email or web address] 5 [facility] (Lab), [address] [place], [address], 03/26/2024 11:18:12 BNP (B-type natriuret ic peptide), serum or plasma 2023 024 STEVE [facility] (Lab), [address] [place], [address], 03/19/2024 14:36:12 ige, total, serum 2023 024 [email or web address] 5 [facility] (Lab), [address] [place], [address], 03/26/2024 11:18:12 tb (M tuberculo sis), ifn-gamma ben, blood 2023 024 [email or web address] 5 [facility] (Lab), [address] [place], [address], 03/26/2024 11:18:12 eosinophi l count, manual, blood (OBS) 2023 024 [email or web address] 5 [facility] (Lab), [address] [place], [address], 03/26/2024 11:18:[address] s 1+2+3+4, serum 2023 024 [email or web address] 5 [facility] (Lab), [address] [place], [address], 03/26/2024 11:18:13 respirato ry allergen panel - [facility] 2023 024 [email or web address] 5 [facility] (Lab), [address] [place], [address], 03/26/2024 11:18:13 respirato ry allergen panel - [facility] b 2023 024 [email or web address] 5 [facility] (Lab), [address] [place], [address], 03/26/2024 11:18:13 Referral pulmonary rehab referral 2023 024 [email or web address] 2 [facility], [address] [place], [address], 09/09/2024 14:57:00 Procedures None recorded. Surgeries None recorded. Imaging None recorded. Medication Orders albuterol sulfate HFA 90 mcg/actua tion aerosol inhaler 2023 024 [id number], [address], [place], [id number], 04/28/2024 13:20:29 Symbicort 160 mcg-4.5 mcg/actua tion HFA aerosol inhaler 2023 024 [facility], [address], [place], [id number], 07/29/2024 15:06:43 Spiriva Respimat 2.5 mcg/actua tion solution for inhalatio n 2023 024 [address] [facility]43[facility], [address], [place], [id number], 07/29/2024 15:06:40 albuterol sulfate HFA 90 mcg/actua tion aerosol inhaler 2023 024 [facility] [employer] [facility] #29536, [address], [place], [id number], 07/29/2024 15:05:04 Breztri Aerospher e 160 mcg-9mcg- 4.8mcg/ac tuation HFA aerosol inhaler 2023 0918/ 024 STEVE [facility] #91215, [address], [place], [id number], 07/29/2024 15:04:31 Patient TargetsNo targets recorded. Patient Instructions Encounter Date Encounter Id Patient Instructions Last Modified By Organization Details Last Modified Time 03/19/2024 [id number] complete PFT w/ post bronchodilator spirometry* - no auth required STEVE Not available 04/29/2024 09:53:10 07/29/2024 [id number] complete PFT w/ post bronchodilator spirometry* [email or web address] Not available 07/29/2024 15:04:22 Reason for Referral Pulmonary Rehab Referral for Severe chronic obstructive pulmonary disease Referring Physician: Jude Milan, Pulmonary Disease, Encounter Date: 04/28/2024 Results Created Date Observation Date Name Description Value Unit Range Abnormal Flag Note LastModifiedBy Organization Detail LastModifiedTime 04/29/20 24 04/28/2024 compl ete PFT w/ post [facility] hodil ator yanci metry * No observ ation record ed. [facility] ([facility]) [address] [place], [address], 04/29/2024 09:53:10 Result Notes None recorded. Problems Name Problem SNOMED Code Status Onset Date Resolution Date Notes Provider Name and Address Organization Details Recorded Time Smoker 27151921 Active 2023 Jude Milan MD [address], [address], [place], [address], [employer] 4 12:14:16 Severe chronic obstructive pulmonary disease 274247678 Active 2023 Jude Milan MD [address], [place], [address], [employer] 4 13:18:34 Notes:Medical History: Bilat eral tinnitus Rhinitis with multiple environmental allergies Eosinophils 420/uL IgE 28 IU/mL AAT PiMM 192 mg% Nicotine use Severe COPD in pulm rehab 2023 Procedure History: None 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 Procedures Surgical History None recorded. Imaging Results Imaging Date Name Status LastModified by Organization Details LastModified Time 04/28/2024 complete PFT w/ post bronchodilator spirometry* completed [facility] ([facility]) [address] [place], [address], 04/29/2024 09:53:10 Procedure Notes None recorded. Medical Equipment None Reported. Allergies No known drug allergies Medications Name Sig Start Date Stop Date Status Note LastModified by Organization Details LastModified Time prednisone 20 mg tablet TAKE 2 TABLETS BY MOUTH DAILY FOR 5 DAYS 03/19 completed Not Available Not Available Not Available methylpredn isolone 4 mg tablets in a dose pack FOLLOW PACKAGE DIRECTION S 03/19 completed Not Available Not Available Not Available albuterol sulfate HFA 90 mcg/actuati on aerosol inhaler INHALE 1 PUFF BY MOUTH EVERY 4 HOURS NEEDED active Not Available Not Available No t Available Symbicort 160 mcg-4.5 mcg/actuati on HFA aerosol inhaler INHALE 2 PUFFS BY MOUTH TWICE DAILY 07/29 completed Not Available Not Available Not Available Symbicort 80 mcg-4.5 mcg/actuati on HFA aerosol inhaler INHALE 2 PUFFS BY MOUTH TWICE DAILY 04/28 completed Not Available Not Available Not Available Spiriva Respimat 2.5 mcg/actuati on solution for inhalation INHALE 2 PUFFS BY MOUTH EVERY DAY 07/29 completed Not Available Not Available Not Available Breztri Aerosphere 160 mcg-9mcg-4. 8mcg/actuat ion HFA aerosol inhaler Inhale 2 puffs twice a day by inhalatio n route. 2023 active Not Available Not Available Not Avai lable Vitals Date Recorded Body weight Body mass index (BMI) Body height Body temperature Systolic blood pressure Diastolic blood pressure Provider Name and Address Organization Details Last Updated DateTime 81772.2 2 g 24.5 kg/m2 182.88 cm 98.5 [degF] 120 mm[Hg] 64 mm[Hg] Rashunda Jackson, [facility] [employer] 4 11:37:36 Date Recorded Heart rate Oxygen saturation Oxygen saturation in Arterial blood by Pulse oximetry Heart rate Respiratory rate Provider Name and Address Organization Details Last Updated DateTime 4 99 /min 95 % 95 % 99 /min 15 /min Jude Milan MD [address], [place], [address], [employer] 4 12:20:21 Date Recorded Body height Body mass index (BMI) Body weight Heart rate Systolic blood pressure Diastolic blood pressure Provider Name and Address Organization Details Last Updated DateTime 4 182.88 cm 24.1 kg/m2 99349.4 4 g 58 /min 126 mm[Hg] 78 mm[Hg] [facility] [employer] 4 13:02:43 Date Recorded Body temperature Oxygen saturation Oxygen saturation in Arterial blood by Pulse oximetry Heart rate Respiratory rate Provider Name and Address Organization Details Last Updated DateTime 4 97.5 [degF] 85 % 85 % 58 /min 14 /min Jude Milan MD [address], [address], [place], [address], [employer] 4 13:28:44 Date Recorded Body height Body mass index (BMI) Body weight Heart rate Body temperature Systolic blood pressure Diastolic blood pressure Provider Name and Address Organization Details Last Updated DateTime 4 182.88 cm 23.2 kg/m2 86178.3 g 75 /min 98 [degF] 124 mm[Hg] 74 mm[Hg] Scot JacksonRoadhop [facility] [employer] 4 14:28:34 Date Recorded Oxygen saturation Oxygen saturation in Arterial blood by Pulse oximetry Heart rate Respiratory rate Provider Name and Address Organization Details Last Updated DateTime 07/29/2024 91 % 91 % 75 /min 15 /min Jude Milan MD [address], [place], [address], [employer] 4 15:01:28 Social History Question Answer Notes LastModified by Organizat ion Details LastModified Time Tobacco Smoking Status Current Every Day Smoker AVELINO Villagomez, [place] - [facility] 03/19/2024 11:42:07 What Is Your Level Of Alcohol Consumption? None Information not available 03/19/2024 Is Blood Transfusion Acceptable In An Emergency? Yes [email or web address] Information not available 03/19/2024 What Is Your Level Of Caffeine Consumption? Occasional Soda Information not available 03/19/2024 In The 14 Days Before Symptom Onset, Have You Had Close Contact With A Laboratory-confi rmed COVID-19 While That Case Was Ill? No Information not available 03/19/2024 In The 14 Days Before Symptom Onset, Have You Had Close Contact With A Person Who Is Under Investigation For COVID-19 While That Person Was Ill? No Information not available 03/19/2024 Are You Currently Employed? No Information not available 03/19/2024 What Type Of Diet Are You Following? REGULAR Information not available 03/19/2024 How Many Days Of Moderate To Strenuous Exercise, Like A Brisk Walk, Did You Do In The Last 7 Days? 2 Information not available 03/19/2024 Do You Have Any Pets? Yes 1 Cat [email or web address] Information not available 03/19/2024 What Is Your Relationship Status? Single [email or web address] Information not available 03/19/2024 Do You Have Smoke And Carbon Monoxide Detectors In Your Home? Yes Information not available 03/19/2024 Do You Feel Stressed (tense, Restless, Nervous, Or Anxious, Or Unable To Sleep At Night)? [id number] [email or web address] Information not available 03/19/2024 Do You Use Any Illicit Or Recreational Drugs? Yes Marijuana Edibles [email or web address] Information not available 03/19/2024 How Many Years Have You Smoked Tobacco? 20 [email or web address] Information not available 03/19/2024 Have You Recently Traveled Abroad? No Information not available 03/19/2024 Sex: Unknown Functional Status Question Answer Note LastModified by Organizat ion Details LastModified Time What is your exercise level? Moderate core stretching Information not available 03/19/2024 Mental Status None recorded. Family History Relationship Description Onset Age of this Age Resolved Age Notes LastModified by Organization Details LastModified Time Maternal Grandfather Malignant tumor of lung Not available 2023 20:33:54 Father Myocardial infarction Not available 03/08 20:34:04 Paternal Grandfather Heart disease Not available 2023 20:34:22 Maternal Grandmother Malignant tumor of breast Not available 2023 12:10:21 Maternal Grandmother Diabetes mellitus Not available 2023 12:11:29 Mother Malignant tumor of breast Not available 2023 12:10:25 Mother Chronic obstructive pulmonary disease Not available 2023 12:11:12 Maternal Aunt Malignant tumor of breast Not available 2023 12:11:48 Paternal Aunt Malignant tumor of ovary Not available 2023 12:12:19 Paternal Aunt Diabetes mellitus Not available 2023 12:12:25 Paternal Aunt Malignant tumor of breast Not available 2023 12:12:36 Paternal Uncle Heart disease Not available 2023 12:12:48 Medical History No medical history recorded. Past Encounters Encounter ID Performer Location Encounter Start Date Encounter Closed Date Diagnosis/Indication Diagnosis SNOMED-CT Code Diagnosis ICD10 Code [id number] MD JAYME Sandoval_RAFAEL [place] [address] 0 03/19/2024 11:21:30 03/20/2024 08:44:28 Dyspnea on exertion 36206251 R06.09 R05.9 T78.40XA D89.9 Smoker [id number] F17.218 F17.219 Z87.598 [id number] MD JAYME Sandoval_RAFAEL [address] [address] 04/28/2024 12:54:52 04/29/2024 08:54:11 Smoker 06986862 F17.218 F17.219 Z87.891 Severe chr onic obstructive pulmonary disease 611807527 J44.9 [id number] Jude Milan MD [facility] [place] [id number] [facility] [address] [place] [address] 07/29/2024 14:11:45 07/29/2024 15:18:58 Severe chronic obstructive pulmonary disease 378736376 J44.9 Smoker 77018613 F17.218 F17.219 Z87.891 Health Concerns Section Related Observation LastModified by Organization Detai ls LastModified Time None Recorded Concern Status LastModified by Organization Details LastModified Time None Recorded Advance Directives Directive None Recorded Payers Encounter Date Sequence Insurance Name Policy Number Policy Ruiz Covered Member ID Ruiz Member ID Guarantor Name 03/19/2024 1 [facility] (MEDICAID REPLACEMENT - HMO) [id number] Nic Soto [id number] Nic Soto 04/28/2024 1 [facility] (MEDICAID REPLACEMENT - HMO) [id number] Nic Soto [id number] Nic Soto 07/29/2024 1 [facility] ON OR AFTER 05/11/21 (MEDICAID REPLACEMENT - HMO) Nic Soto [id number] Nic Soto Notes Date Note Type Note Provider Name and Address Organization Details Recorded Time 03/19/2024 text/html Primary care/Referring provider: Jasvir Jean-Baptiste MD Patient is here to go over shortness of breath evaluation/management . Initial development of shortness of breath: uration of shortness of breath: 2 yearsCondition of shortness of breath: worseningTiming of shortness of breath: morningFrequency: every hourLimits activities: yesAggravating factors: brisk walkingAlleviating factors: rest Modified Medical Research Circle (mMRC) Dyspnea Scale - Grade 2Grade 0 ? I only get breathless with strenuous exercise? .Grade 1 ? I get short of breath when hurrying on the level or walking up a slight hill? .Grade 2 ? I walk slower than people of the same age on the level because of breathlessness or have to stop for breath when walking at my own pace on the level? .Grade 3 ? I stop for breath after walking about 100 yards or after a few minutes on the level? .Grade 4 ? I am too breathless to leave the house? or ? I am breathless when dressing? . Treatment history: Albuterol nebs as needed 09/2023 onlyAlbuterol HFA as needed since 09/2023Symbicort 80/4.5 mcg 2 puffs BID since 09/2023 Other symptoms:Drooling: noDysarthria: noNeck pain: noOdynophagia: noDysphagia: noWeak mastication: noFacial weakness: noNasal speech: noProtruding tongue: noProductive cough: whiteWheezing: yesChest tightness: yesOrthopnea: 2-pillow habitFrequent throat clearing or swallowing: noPalpitations: noHeartburn: noEdema: no Environmental exposures:Nicotine smoke: 1/2 ppd 2002-present = 10.5 pack yearsPaint: noDye: noDust mites: yesMold: noDamp basement: noWood burning stove: noAnimal dander: catCockroaches: noPollen: yesArsenic: noAsbestos: noBeryllium: noCadmium: noChromium: noCoal smoke: noDiesel fumes: noNickel: noSilica: noSoot: no EPWORTH SLEEPINESS SCALE (ESS) CHANCE OF DOZING SCORE0 = would never doze1 = slight chance of dozing2 = moderate chance of dozing3 = high chance of dozing SITUATION AND CHANCE OF DOZINGSitting and reading - 0Watching television - 0Sitting inactive in a public place (e.g. a theater or meeting) - 0As a passenger in a car for an hour without a break - 0Lying down to rest in the afternoon when circumstances permit - 1Sitting and talking to someone - 0Sitting quietly after lunch without alcohol - 0In a car, while stopped for a few minutes in the traffic - 0TOTAL SCORE 1Subjectively, patient has a slight chance of dozing. Jude Milan MD [address] [place] [address], [phone], [facility] [employer] 04/28/2024 13:26:21 04/28/2024 text/html Primary care/Referring provider: Jasvir Jean-Baptiste MD Patient is here to go over his lab data and PFT as part of his shortness of breath evaluation/management . Initial development of shortness of breath: uration of shortness of breath: 2 yearsCondition of shortness of breath: stableTiming of shortness of breath: morningFrequency: every hourLimits activities: yesAggravating factors: brisk walkingAlleviating factors: rest Modified Medical Research Circle (mMRC) Dyspnea Scale - Grade 2Grade 0 ? I only get breathless with strenuous exercise? .Grade 1 ? I get short of breath when hurrying on the level or walking up a slight hill? .Grade 2 ? I walk slower than people of the same age on the level because of breathlessness or have to stop for breath when walking at my own pace on the level? .Grade 3 ? I stop for breath after walking about 100 yards or after a few minutes on the level? .Grade 4 ? I am too breathless to leave the house? or ? I am breathless when dressing? . Treatment history: Albuterol nebs as needed 09/2023 onlyAlbuterol HFA as needed since 09/2023Symbicort 80/4.5 mcg 2 puffs BID since 09/2023 Other symptoms:Drooling: noDysarthria: noNeck pain: noOdynophagia: noDysphagia: noWeak mastication: noFacial weakness: noNasal speech: noProtruding tongue: noProductive cough: whiteWheezing: yesChest tightness: yesOrthopnea: 2-pillow habitFrequent throat clearing or swallowing: noPalpitations: noHeartburn: noEdema: no Environmental exposures:Nicotine smoke: 1/2 ppd 2003-present = 10.5 pack yearsPaint: noDye: noDust mites: yesMold: noDamp basement: noWood burning stove: noAnimal dander: catCockroaches: noPollen: yesArsenic: noAsbestos: noBeryllium: noCadmium: noChromium: noCoal smoke: noDiesel fumes: noNickel: noSilica: noSoot: no EPWORTH SLEEPINESS SCALE (ESS) CHANCE OF DOZING SCORE0 = would never doze1 = slight chance of dozing2 = moderate chance of dozing3 = high chance of dozing SITUATION AND CHANCE OF DOZINGSitting and reading - 1Watching television - 1Sitting inactive in a public place (e.g. a theater or meeting) - 0As a passenger in a car for an hour without a break - 0Lying down to rest in the afternoon when circumstances permit - 2Sitting and talking to someone - 0Sitting quietly after lunch without alcohol - 1In a car, while stopped for a few minutes in the traffic - 0TOTAL SCORE 5Subjectively, patient has a slight chance of dozing. Jude Milan MD [address] [facility], [address], [place], [address], [place] [facility] [employer] 04/28/2024 17:04:17 07/29/2024 text/html Primary care/Referring provider: Jasvir Jean-Baptiste MD CC: I switched insurance and [employer] is now covered. Patient is here to go over his severe COPD management. Initial development of shortness of breath: uration of shortness of breath: 2 yearsCondition of shortness of breath: stableTiming of shortness of breath: morningFrequency: every hourLimits activities: yesAggravating factors: brisk walkingAlleviating factors: rest Modified Medical Research Circle (mMRC) Dyspnea Scale - Grade 2Grade 0 ? I only get breathless with strenuous exercise? .Grade 1 ? I get short of breath when hurrying on the level or walking up a slight hill? .Grade 2 ? I walk slower than people of the same age on the level because of breathlessness or have to stop for breath when walking at my own pace on the level? .Grade 3 ? I stop for breath after walking about 100 yards or after a few minutes on the level? .Grade 4 ? I am too breathless to leave the house? or ? I am breathless when dressing? . Treatment history: Albuterol nebs as needed 09/2023 onlyAlbuterol HFA as needed since 09/2023Symbicort 80/4.5 mcg 2 puffs BID 2022-2023[facility] Respimat 2023 only Other symptoms:Drooling: noDysarthria: noNeck pain: noOdynophagia: noDysphagia: noWeak mastication: noFacial weakness: noNasal speech: noProtruding tongue: noProductive cough: whiteWheezing: yesChest tightness: yesOrthopnea: 2-pillow habitFrequent throat clearing or swallowing: noPalpitations: noHeartburn: noEdema: no Environmental exposures:Nicotine smoke: 1/2 ppd 2003-present = 10.5 pack yearsPaint: noDye: noDust mites: yesMold: noDamp basement: noWood burning stove: noAnimal dander: catCockroaches: noPollen: yesArsenic: noAsbestos: noBeryllium: noCadmium: noChromium: noCoal smoke: noDiesel fumes: noNickel: noSilica: noSoot: no EPWORTH SLEEPINESS SCALE (ESS) CHANCE OF DOZING SCORE0 = would never doze1 = slight chance of dozing2 = moderate chance of dozing3 = high chance of dozing SITUATION AND CHANCE OF DOZINGSitting and reading - 0Watching television - 1Sitting inactive in a public place (e.g. a theater or meeting) - 0As a passenger in a car for an hour without a break - 0Lying down to rest in the afternoon when circumstances permit - 1Sitting and talking to someone - 0Sitting quietly after lunch without alcohol - 0In a car, while stopped for a few minutes in the traffic - 0TOTAL SCORE 2Subjectively, patient has a slight chance of dozing. Jude Milan MD [address] [place] [address], [facility] [address], [place], [address], [place] [facility] [place] [employer] 07/29/2024 15:09:10
--- OUTSIDE RECORDS SUMMARY | 2024-10-22 09:49 | XMS_ITS | Continuity of Care Document ---
Author Organization [place] - [facility], [employer] [facility] [place] Address [address] [place] [id number] Assessment Encounter Date Assessment Date Assessment LastModified by Organization Details LastModified Time 07/29/2024 07/29/2024 Assessment: Nicotine smoke: 11/12 ppd 2002-present = 10.5 pack years Severe COPD Plan: The following were reviewed and explained to the patient: Chest CT 09/12/23 no acute disease, no P. E. Lab data 03/19/24 multiple environmental allergies PFT 04/28/24 FEV1 1.36 L 32%, BD -50 mL = -4% Nicotine cessation counseling provided. [place]aver for quitting nicotine include getting ready, getting [...] in Quit For Life program Registering at [email or web address] Making a call to 9-823-ZDMA-NOW ( ). A strong, clear, personalized message [...] failure or relapse. Patient can enroll in [facility]'s smoking cessation class through Gay Carl RN [...] further management. Follow-up: 9 months, April 2025 Not available 07/29/2024 15:09:07 Plan of Treatment Reminders Order Date Submit Date Provider Last Modified By Organization Details Last Modified Time Details Appointments Any 30 2024 01:30P Lexy Milan MD Not available Not available Not available Lab None recorded. Referral None recorded. Procedures None recorded. Surgeries None recorded. Imaging None recorded. Medication Orders albuterol sulfate HFA 90 mcg/actua tion aerosol inhaler 2023 024 [facility] [employer] [facility][id number], [address], [place], [phone], 07/29/2024 15:05:04 [employer] 160 mcg-9mcg- 4.8mcg/ac tuation HFA aerosol inhaler 2023 024 [facility] #[id number], [address] [place], [place], [id number], 07/29/2024 15:04:31 Patient TargetsNo targets recorded. Patient Instructions Encounter Date Encounter Id Patient Instructions Last Modified By Organization Details Last Modified Time 07/29/2024 [id number] complete PFT w/ post bronchodilator spirometry* Not available 07/29/2024 15:04:22 Reason for Referral None Reported. Problems Name Problem SNOMED Code Status Onset Date Resolution Date Notes Provider Name and Address Organization Details Recorded Time Smoker 24596662 Active 2023 Jude Milan MD [address], [address], [place], [address], [facility] [employer] [facility] 4 12:14:16 Severe chronic obstructive pulmonary disease 194798325 Active 2023 Jude Milan MD [address], [place], [address], [facility] [employer] [facility] 4 13:18:34 Notes:Medical History: Bilat eral tinnitus Rhinitis with multiple environmental allergies Eosinophils 420/uL IgE 28 IU/mL AAT PiMM 192 mg% Nicotine use Severe COPD in pulm rehab 2023 Procedure History: None 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 Medical Equipment None Reported. [...] Not Avai lable Vitals Date Recorded Body height Body mass index (BMI) Body weight Heart rate Body temperature Systolic blood pressure Diastolic blood pressure Provider Name and Address Organization Details Last Updated DateTime 4 182.88 cm 23.2 kg/m2 32164.3 g 75 /min 98 [degF] 124 mm[Hg] 74 mm[Hg] Scot Jackson CMA [place] [facility] [employer] 4 14:28:34 Date Recorded Oxygen saturation Oxygen saturation in Arterial blood by Pulse oximetry Heart rate Respiratory rate Provider Name and Address Organization Details Last Updated DateTime 07/29/2024 91 % 91 % 75 /min 15 /min Jude Milan MD [address] [facility], [address], [place], [address], [facility] [employer] 4 15:01:28 Social History Question Answer Notes LastModified by Organizat ion Details LastModified Time Tobacco Smoking Status Current Every Day Smoker Scot Jackson CMA null, [facility] [employer] 03/19/2024 11:42:07 What Is Your Level Of Alcohol Consumption? None [email or web address] Information not available 03/19/2024 Is Blood Transfusion Acceptable In An Emergency? Yes Information not available 03/19/2024 What Is Your Level Of Caffeine Consumption? Occasional Soda [email or web address] Information not available 03/19/2024 In The 14 Days Before Symptom Onset, Have You Had Close Contact With A Laboratory-confi rmed COVID-19 While That Case Was Ill? No [email or web address] Information not available 03/19/2024 In The 14 Days Before Symptom Onset, Have You Had Close Contact With A Person Who Is Under Investigation For COVID-19 While That Person Was Ill? No [email or web address] Information not available 03/19/2024 Are You Currently Employed? No [email or web address] Information not available 03/19/2024 What Type Of Diet Are You Following? REGULAR [email or web address] Information not available 03/19/2024 How Many Days Of Moderate To Strenuous Exercise, Like A Brisk Walk, Did You Do In The Last 7 Days? 2 [email or web address] Information not available 03/19/2024 Do You Have Any Pets? Yes 1 Cat [email or web address] Information not available 03/19/2024 What Is Your Relationship Status? Single [email or web address] Information not available 03/19/2024 Do You Have Smoke And Carbon Monoxide Detectors In Your Home? Yes [email or web address] Information not available 03/19/2024 Do You Feel Stressed (tense, Restless, Nervous, Or Anxious, Or Unable To Sleep At Night)? [id number] [email or web address] Information not available 03/19/2024 Do You Use Any Illicit Or Recreational Drugs? Yes Marijuana Edibles [email or web address] Information not available 03/19/2024 How Many Years Have You Smoked Tobacco? 20 [email or web address] Information not available 03/19/2024 Have You Recently [...] Diagnosis/Indication Diagnosis SNOMED-CT Code Diagnosis ICD10 Code [id number] Jude Milan MD [facility] [address] [address] 07/29/2024 14:11:45 07/29/2024 15:18:58 Severe chronic obstructive pulmonary disease 457283617 J44.9 Smoker 66490138 F17.218 F17.219 Z87.891 Health Concerns Section Related Observation LastModified by Organization Detai ls LastModified Time None Recorded Concern Status LastModified by Organization Details LastModified Time None Recorded Payers Encounter Date Sequence Insurance Name Policy Number Policy Ruiz Covered Member ID Ruiz Member ID Guarantor Name 07/29/2024 1 [facility] ON OR AFTER 05/11/21 (MEDICAID REPLACEMENT - HMO) Nic Soto [id number] Nic Soto Notes Date Note Type Note Provider Name and Address Organization Details Recorded Time 07/29/2024 text/html Primary care/Referring provider: Jasvir Jean-Baptiste MD CC: I switched insurance and [employer] is now covered. Patient is here to go over his severe COPD management. Initial development of shortness of breath: uration of shortness of breath: 2 yearsCondition of shortness of breath: stableTiming of shortness of breath: morningFrequency: every hourLimits activities: yesAggravating factors: brisk walkingAlleviating factors: rest Modified Medical [employer] [place] (mMRC) Dyspnea Scale - Grade 2Grade 0 [...] slight chance of dozing. Jude Milan MD [address] [place] [address], [address], [place], [address], [place] [facility] [place] [employer] [facility] 07/29/2024 15:09:10
[2024-10-22 10:48] LABS: Anion Gap 4 mmol/L (4-12); Blood Urea Nitrogen 16 mg/dL (9-20); Calcium 9.5 mg/dL (8.4-10.2); Carbon Dioxide 31 mmol/L (22-30); Chloride 103 mmol/L (98-107); Estimated Glomerular Filt Rate > 60; Glucose 98 mg/dL (65-110); Sodium 138 mmol/L (137-145)
== END 2024-10-22 09:42 | disposition home or self-care (01) ==
PROVIDERS: PCP Physician Assistant; Visit Provider Physician Assistant
DX: E87.6 Hypokalemia (principal)
CPT/HCPCS: 36415; 80048

== ENCOUNTER 2024-11-27 15:31 | Outpatient (CLI) | payer OTHER, SELFPAY ==
--- NOTE | ~2024-11-27 | XR_ITS ---
XR chest 2V Ordering provider: Maida Sumner, FELI History: 39 years Male with . elevated white blood cell count . Comparison: October 05, 2024 FINDINGS: MEDIASTINUM: The cardiac silhouette is not enlarged. Prominent ellie. LUNGS: No infiltrates, effusions or pneumothorax. OTHER: No free air under the diaphragm. IMPRESSION: No acute cardiopulmonary pathology. Reviewed, dictated and finalized at location A. [employer]
--- NOTE | ~2024-11-27 | XR_ITS ---
EXAM: XR foot RT min 3V DATE: 11/27/2024 16:21 HISTORY: elevated white blood cell count/ nondisplaced fracture . COMPARISON: 10/05/2024. FINDINGS: Normal mineralization. Redemonstration of the mildly displaced distal right fourth and fif th metatarsal fractures. Likely partial osseous bridging at the fourth metatarsal fracture and medial ly at the fifth metatarsal fracture No new fracture or dislocation. No lytic or blastic lesion. Mild degenerative change at the first MTP joint with mild hallux valgus. No erosion or periosteal change. Soft tissues within normal limits. IMPRESSION: No radiographic findings to suggest osteomyelitis. Likely osseous bridging noted at the f ourth and fifth metatarsal fractures. If there is persistent pain or clinical concern for nonunion, C T of the foot could be performed for confirmation. Reviewed, dictated and finalized at location K. & GENERAL [employer]SEL IMPRESSION: No radiographic findings to suggest osteomyelitis. Likely osseous b ridging noted at the fourth and fifth metatarsal fractures. If there is persist ent pain or clinical concern for nonunion, CT of the foot could be performed fo r confirmation.
[2024-11-27 15:53] LABS: Basophils Absolute Auto 0.1 K/mm3 (0.0-0.1); Basophils Percent Auto 1.4 % (0.2-1.2); Eosinophils Absolute Auto 0.3 K/mm3 (0-0.3); Eosinophils Percent Auto 4.1 % (0-4.4); Hematocrit 48.5 % (42.0-52.0); Hemoglobin 16.1 g/dL (14.0-18.0); Immature Granulocyte Absolute 0.03 K/mm3 (0.00-0.031); Immature Granulocyte Percent A 0.4 % (0-0.5); Lymphocytes Absolute Auto 2.96 K/mm3 (0.9-3.2); Lymphocytes Percent Auto 38.7 % (18.3-44.2); Mean Corpuscular HGB Conc 33.2 g/dl (32-36); Mean Corpuscular Hemoglobin 32.2 pg (26-34); Mean Platelet Volume 9.8 fl (7.4-10.4); Monocytes Absolute Auto 0.4 K/mm3 (0.1-0.6); Monocytes Percent Auto 5.8 % (2.6-8.5); Neutrophils Absolute Auto 3.8 K/mm3 (1.3-6.7); Neutrophils Percent Auto 49.6 % (45.5-73.1); Platelet Count Result 240 k/mm3 (150-375); Red Cell Distribution Width 13.2 % (11.5-14.5); White Blood Count 7.6 K/mm3 (4.5-10.0)
[2024-11-27 16:33] LABS: Hepatitis B Surface Antigen Negative (Negative); Lactate Dehydrogenase 154 U/L (120-246)
[2024-11-27 16:39] LABS: HAV RESULT Negative (Negative); Hepatitis B Core IgM Result Negative (Negative)
[2024-11-27 16:43] LABS: HIV 1/2 Ab P24 Ag Result Negative (Negative)
[2024-11-27 16:47] LABS: Erythrocyte Sedimentation Rate 14 mm/hr (0-20)
[2024-11-27 16:51] LABS: Hepatitis C Virus Antibody Negative (Negative)
[2024-11-28 11:00] LABS: Rapid Plasma Reagin Non-Reactive (NonReactive)
--- OUTSIDE RECORDS SUMMARY | 2024-12-03 07:15 | XMS_ITS | Data Portability ---
Author Organization [facility], Main Office Address [address] [place] [address] Assessment Encounter Date Assessment Date Assessment LastModified by Organization Details LastModified Time 03/19/2024 03/19/2024 Assessment: Nicotine smoke: 11/12 ppd 2002-present = 10.5 pack years Cough Dyspnea Plan: The following were reviewed and explained to the patient: primary care/referral note Chest CT 09/12/23 no acute disease, no P. E. Nicotine cessation counseling provided for 4 minutes. [place] for quitting nicotine include getting ready, getting [...] in Quit For Life program Registering at [email or web address] Making a call to 8-497-INFQ-NOW ( ). A strong, clear, personalized message [...] failure or relapse. Patient can enroll in [facility]'s smoking cessation class through Gay Carl RN at . Enrollment is free and classes are held every saturday of the month from 1:30 pm to 2:30 pm at the conference room next to the cafeteria on the ground floor. Cough/Dyspnea workup will be done as follows: Respiratory allergen panel for [facility] Serum IgE Serum total IgG, IgG1, IgG2, IgG3, IgG4 Rzvhi-6-prypjdviym n phenotype and level TB stimulated gamma [...] 3 Lpm NC Nicotine cessation counseling provided. [place] for quitting nicotine include getting ready, getting [...] in Quit For Life program Registering at [email or web address] Making a call to 7-747-FXRD-NOW ( ). A strong, clear, personalized message [...] failure or relapse. Patient can enroll in [facility]'s smoking cessation class through Gay Carl [...] mL = -4% Nicotine cessation counseling provided. [place] for quitting nicotine include getting ready, getting [...] in Quit For Life program Registering at [email or web address] Making a call to 8-427-KTOV-NOW ( ). A strong, clear, personalized message [...] failure or relapse. Patient can enroll in [facility]'s smoking cessation class through Gay Carl [...] weekly schedule. Continue Albuterol HFA as needed. In spite of insurance switch, Breztri 160/9/4.8 mcg 2 puffs BID is still not covered. Continue Symbicort HFA 160/4.5 mcg 2 puffs BID. Gargle after use. Continue Spiriva Respimat 2.5 mcg 2 puffs daily. [...] further management. Follow-up: 9 months, April 2025 [facility] Not available 10/29/2024 14:40:40 Plan of Treatment Reminders Order Date Submit Date Provider Last Modified By Organization Details Last Modified Time Details Appointments Any 30 2024 01:30P Lexy Milan MD Not available Not available Not available Lab alpha-1-a ntitrypsi n (aat) phenotype , serum [email or web address] [place] [address] (Lab), [address] [place], [address], 03/26/2024 11:18:12 BNP (B-type natriuret ic peptide), serum or plasma 2023 024 STEVE [facility] (Lab), [address] [place], [address], 03/19/2024 14:36:12 ige, total, serum 2023 [email or web address] [place] [address] (Lab), [address] [place], [address], 03/26/2024 11:18:12 tb (M tuberculo sis), ifn-gamma ben, blood 20[id number] [place] [address] (Lab), [address] [place], [address], 03/26/2024 11:18:12 eosinophi l count, manual, blood (OBS) [email or web address] [place] [address] (Lab), [address] [place], [address], 03/26/2024 11:18:12 [address] 1+2+3+4, serum 20[id number] [place] [address] (Lab), [address] [place], [address], 03/26/2024 11:18:13 respirato ry allergen panel - [facility] 2023 024 5 [facility] (Lab), [address] [place], [address], 03/26/2024 11:18:13 respirato ry allergen panel - [facility] b 2023 024 [id number] 5 [facility] (Lab), [address] [place], [address], 03/26/2024 11:18:13 Referral pulmonary rehab referral 2023 024 2 [facility], [address] [place], [address], 09/09/2024 14:57:00 Procedures None recorded. Surgeries None recorded. Imaging None recorded. Medication Orders albuterol sulfate HFA 90 mcg/actua tion aerosol inhaler 2023 024 [id number], [address], [place], [id number], 04/28/2024 13:20:29 Symbicort 160 mcg-4.5 mcg/actua tion HFA aerosol inhaler 2023 024 [id number], [address], [place], [id number], 07/29/2024 15:06:43 Spiriva Respimat 2.5 mcg/actua tion solution for inhalatio n 2023 024 [facility], [address], [place], [id number], 07/29/2024 15:06:40 albuterol sulfate HFA 90 mcg/actua tion aerosol inhaler 2023 024 [facility]00837, [address], [place], [id number], 07/29/2024 15:05:04 Symbicort 160 mcg-4.5 mcg/actua tion HFA aerosol inhaler 2023 024 [facility]01210, [address], [place], [id number], 10/29/2024 14:42:45 Spiriva Respimat 2.5 mcg/actua tion solution for inhalatio n 2023 024 [facility] #13596, [address], [place], [id number], 10/29/2024 14:42:44 Patient TargetsNo targets recorded. Patient Instructions Encounter Date Encounter Id Patient Instructions Last Modified By Organization Details Last Modified Time 03/19/2024 [id number] complete PFT w/ post bronchodilator spirometry* - no auth required STEVE Not available 04/29/2024 09:53:10 07/29/2024 [id number] complete PFT w/ post bronchodilator spirometry* [facility] Not available 07/29/2024 15:04:22 Reason for Referral Pulmonary Rehab Referral for Severe chronic obstructive pulmonary disease Referring Physician: Jude Milan, Pulmonary Disease, Encounter Date: 04/28/2024 Results Created Date Observation Date Name Description Value Unit Range Abnormal Flag Note LastModifiedBy Organization Detail LastModifiedTime 04/29/20 24 04/28/2024 compl ete PFT w/ post [facility] h[facility] ator yanci metry * No observ ation record ed. [facility] ([facility]) [address], [place], [address], 04/29/2024 09:53:10 Result Notes None recorded. Problems Name Problem SNOMED Code Status Onset Date Resolution Date Notes Provider Name and Address Organization Details Recorded Time Smoker 59941046 Active 2023 Jude Milan MD [address], [address], [place], [address], [facility] [employer] [facility] 4 12:14:16 Severe chronic obstructive pulmonary disease 326077027 Active 2023 Jude Milan MD [address] [facility], [facility] [address], [place], [address], [facility] [employer] [facility] 4 13:18:34 Notes:Medical History: Bilat eral tinnitus Rhinitis with multiple environmental allergies Eosinophils 420/uL IgE 28 IU/mL AAT PiMM 192 mg% Nicotine use Severe COPD in pulm rehab 2023 Procedure History: None 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 Procedures Surgical History None recorded. Imaging Results Imaging Date Name Status LastModified by Organization Details LastModified Time 04/28/2024 complete PFT w/ post bronchodilator spirometry* completed [facility] ([facility]) [address] [place], [address], 04/29/2024 09:53:10 Procedure Notes None recorded. Medical [...] a dose pack FOLLOW PACKAGE DIRECTION S active Not Available Not Available No t Available albuterol sulfate HFA 90 mcg/actuati on aerosol inhaler INHALE 1 PUFF BY MOUTH EVERY 4 HOURS NEEDED active Not Available Not Available No t Available Symbicort 160 mcg-4.5 mcg/actuati on HFA aerosol inhaler Inhale 2 puffs twice a day by inhalatio n route. active Not Available Not Available No t Available Symbicort 80 mcg-4.5 mcg/actuati on HFA aerosol inhaler INHALE 2 PUFFS BY MOUTH TWICE DAILY 04/28 completed Not Available Not Available Not Available Spiriva Respimat 2.5 mcg/actuati on solution for inhalation Inhale 2 puffs every day by inhalatio n route. active Not Available Not Available No t Available Breztri Aerosphere 160 mcg-9mcg-4. 8mcg/actuat ion HFA aerosol inhaler INHALE 2 PUFFS BY MOUTH TWICE DAILY 10/29 completed Not Available Not Available Not Available Vitals Date Recorded Body weight Body mass index (BMI) Body height Body temperature Systolic blood pressure Diastolic blood pressure Provider Name and Address Organization Details Last Updated DateTime 4 20791.2 2 g 24.5 kg/m2 182.88 cm 98.5 [degF] 120 mm[Hg] 64 mm[Hg] Scot Jackson [facility] [employer] 4 11:37:36 Date Recorded Heart rate Oxygen saturation Oxygen saturation in Arterial blood by Pulse oximetry Heart rate Respiratory rate Provider Name and Address Organization Details Last Updated DateTime 4 99 /min 95 % 95 % 99 /min 15 /min Jude Milan MD [address], [place], [address], [employer] [facility] 4 12:20:21 Date Recorded Body height Body mass index (BMI) Body weight Heart rate Systolic blood pressure Diastolic blood pressure Provider Name and Address Organization Details Last Updated DateTime 4 182.88 cm 24.1 kg/m2 06711.4 4 g 58 /min 126 mm[Hg] 78 mm[Hg] Scot Jackson [facility] [employer] 4 13:02:43 Date Recorded Body temperature Oxygen saturation Oxygen saturation in Arterial blood by Pulse oximetry Heart rate Respiratory rate Provider Name and Address Organization Details Last Updated DateTime 4 97.5 [degF] 85 % 85 % 58 /min 14 /min Jude Milan MD [address], [place], [address], [employer] [facility] 4 13:28:44 Date Recorded Body height Body mass index (BMI) Body weight Heart rate Body temperature Systolic blood pressure Diastolic blood pressure Provider Name and Address Organization Details Last Updated DateTime 4 182.88 cm 23.2 kg/m2 32899.3 g 75 /min 98 [degF] 124 mm[Hg] 74 mm[Hg] Scot Jackson [facility] [employer] 4 14:28:34 Date Recorded Oxygen saturation Oxygen saturation in Arterial blood by Pulse oximetry Heart rate Respiratory rate Provider Name and Address Organization Details Last Updated DateTime 07/29/2024 91 % 91 % 75 /min 15 /min Jude Milan MD [address], [facility] [address], [place], [address], [facility] 15:01:28 Social History Question Answer Notes LastModified by Organizat ion Details LastModified Time Tobacco Smoking Status Current Every Day Smoker Scot Jackson CMA null, [facility] 03/19/2024 11:42:07 What Is Your Level Of Alcohol Consumption? None [email or web address] Information not available 03/19/2024 Is Blood Transfusion Acceptable In An Emergency? Yes [email or web address] Information not available 03/19/2024 What Is Your Level Of Caffeine Consumption? Occasional Soda [email or web address] Information not available 03/19/2024 In The 14 Days Before Symptom Onset, Have You Had Close Contact With A Laboratory-confi rmed COVID-19 While That Case Was Ill? No [email or web address] Information not available 03/19/2024 In The 14 Days Before Symptom Onset, Have You Had Close Contact With A Person Who Is Under Investigation For COVID-19 While That Person Was Ill? No [email or web address] Information not available 03/19/2024 Are You Currently Employed? No [email or web address] Information not available 03/19/2024 What Type Of Diet Are You Following? REGULAR [email or web address] Information not available 03/19/2024 How Many Days Of Moderate To Strenuous Exercise, Like A Brisk Walk, Did You Do In The Last 7 Days? 2 [email or web address] Information not available 03/19/2024 Do You Have Any Pets? Yes 1 Cat [email or web address] Information not available 03/19/2024 What Is Your Relationship Status? Single [email or web address] Information not available 03/19/2024 Do You Have Smoke And Carbon Monoxide Detectors In Your Home? Yes [email or web address] Information not available 03/19/2024 Do You Feel Stressed (tense, Restless, Nervous, Or Anxious, Or Unable To Sleep At Night)? [id number] [email or web address] Information not available 03/19/2024 Do You Use Any Illicit Or Recreational Drugs? Yes Marijuana Edibles [email or web address] Information not available 03/19/2024 How Many Years Have You Smoked Tobacco? 20 [email or web address] Information not available 03/19/2024 Have You Recently Traveled Abroad? No [email or web address] Information not available 03/19/2024 Sex: Unknown Functional Status Question Answer Note LastModified by Organizat ion Details LastModified Time What is your exercise level? Moderate core stretching [email or web address] Information not available 03/19/2024 Mental Status None [...] Diagnosis/Indication Diagnosis SNOMED-CT Code Diagnosis ICD10 Code Diagnosis Note [id number] MD JAYME Sandoval_RAFAEL Pulmonolo gy [address] [address] 03/19/2024 11:21:30 03/20/2024 08:44:28 Dyspnea on exertion 90520471 R06.09 R05.9 T78.40XA D89.9 Smoker 11773359 F17.218 F17.219 Z87.424 [id number] MD [facility] [place] [address] [place] [address] 04/28/2024 12:54:52 04/29/2024 08:54:11 Smoker 13765789 F17.218 F17.219 Z87.891 Severe chr onic obstructive pulmonary disease 687950609 J44.9 [id number] Jude Milan MD [facility] [place] [facility] [place] [address] [place] [phone] 07/29/2024 14:11:45 07/29/2024 15:18:58 Severe chronic obstructive pulmonary disease 802192152 J44.9 Smoker 00989868 F17.218 F17.219 Z87.891 Health Concerns Section Related Observation LastModified by Organization Detai ls LastModified Time None Recorded Concern Status LastModified by Organization Details LastModified Time None Recorded Advance Directives Directive None Recorded Payers Encounter Date Sequence Insurance Name Policy Number Policy Ruiz Covered Member ID Ruiz Member ID Guarantor Name 03/19/2024 1 [facility] (MEDICAID REPLACEMENT - HMO) [id number] Nic Soto [id number] Nic Soto 04/28/2024 1 [facility] (MEDICAID REPLACEMENT - HMO) [id number] Nic Soto [id number] Nic Soto 07/29/2024 1 [facility] - DOS ON OR AFTER 21 (MEDICAID REPLACEMENT - HMO) Nic Soto [id number] Nic Soto Notes Date Note Type Note [...] brisk walkingAlleviating factors: rest Modified [employer] (mMRC) Dyspnea Scale - Grade 2Grade 0 [...] slight chance of dozing. Jude Milan MD [address] [place] [address] Ave, [facility] [address], [place], [address], [place] [facility] 04/28/2024 13:26:21 04/28/2024 text/html Primary care/Referring provider: [...] brisk walkingAlleviating factors: rest Modified [employer] (mMRC) Dyspnea Scale - Grade 2Grade 0 [...] slight chance of dozing. Jude Milan MD [address] [place] [address], [address] [address], [place], [address], [place] [facility] 04/28/2024 17:04:17 07/29/2024 text/html Primary care/Referring provider: Jasvir Jean-Baptiste MD CC: I switched insurance and [email or web address] is now covered. Patient is here to go over his severe COPD management. Initial development of shortness of breath: uration of shortness of breath: 2 yearsCondition of shortness of breath: stableTiming of shortness of breath: morningFrequency: every hourLimits activities: yesAggravating factors: brisk walkingAlleviating factors: rest Modified [employer] (mMRC) Dyspnea Scale - Grade 2Grade 0 [...] noPalpitations: noHeartburn: noEdema: no Environmental exposures:Nicotine smoke: / ppd 2003-present = 10.5 pack yearsPaint: noDye: [...] chance of dozing. Jude Milan MD [address] [facility] [address] [facility], [address] [place] [address], [place], [address], [facility] 10/29/2024 14:42:40
--- OUTSIDE RECORDS SUMMARY | 2024-12-03 07:15 | XMS_ITS | Data Portability ---
Author Organization [facility] Address [address] [facility] [place] [address] Care Team Providers Care Counselor Dormitory Name Role Phone EDVIN LIMA Primary Care Provider Unavailab le Assessment No assessment recorded. Plan of Treatment Reminders Order Date Submit Date Provider Last Modified By Organization Details Last Modified Time Details Appointments ANY 15 2024 03:30P M ARSLAN Martinez Not available Not available Not available Lab CBC w/ auto diff 2023 [facility] (Lab), [address] [place] [address], [address], 10/21/2024 11:45:14 CMP, serum or plasma [address] (Lab), [address] [place] [address], [address], 10/19/2024 14:46:24 vitamin B12 + folate, serum or blood 2023 024 [facility] (Lab), [address] [place] [address], [address], 10/21/2024 11:44:22 TSH + free T4, serum 2023 024 [facility] (Lab), [address] [place] [address], [address], 10/21/2024 11:43:59 lipid panel, serum 2023 [facility] (Lab), [address] [place] [address], [address], 10/21/2024 11:43:33 HbA1c (hemoglo bin A1c), blood 2023 024 [facility] ([facility]), [facility] [address], [place], [address], 10/21/2024 11:43:48 Referral None recorded . Procedures None recorded . Surgeries None recorded . Imaging None recorded . Medication Orders None recorded . Patient TargetsNo targets recorded. Patient Instructions Encounter Date Encounter Id Patient Instructions Last Modified By Organization Details Last Modified Time 08/18/2024 [id number] Quitting Tobacco : Care Instructions [email or web address] Not available 08/18/2024 17:28:18 Reason for Referral None Reported. Results Created Date Observation Date Name Description Value Unit Range Abnormal Flag Note LastModifiedBy Organization Detail LastModifiedTime 11/28/19 25 11/27/2024 XR, chest , 2 view No observ ation record ed. [address], [place], [address], 12/01/2024 13:42:50 11/28/19 25 11/27/2024 XR, foot, 2 view No observ ation record ed. [address], [place], [address], 12/01/2024 13:42:50 Result Notes None recorded. Problems Name Problem SNOMED Code Status Onset Date Resolution Date Notes Provider Name and Address Organization Details Recorded Time Long-term drug therapy Active 2023 ARSLAN Martinez Attn: Renata garcia,[address] [place], [address], [place] 4 09:11:47 Smoker 19849720 Active 2023 ARSLAN Martinez Attn: Renata garcia,[address] [place], [address], [place] [facility] 4 09:11:56 Chronic obstructive pulmonary disease 58309894 Active 2023 ARSLAN Martinez Attn: Renata garcia,[address] [place], [address], [place] [facility] 4 09:12:11 Positive screening for depression on PHQ-9 (Patient Health Questionnai re 9) 7534729991484 00 Active 2023 ARSLAN Martinez Attn: Renata garcia,[address] [facility], [place], [address], [place] [facility] 4 09:12:29 Problem Notes None recorded. Procedures Surgical History None recorded. Imaging Results Imaging Date Name Status LastModified by Organiz ation Details LastModified Time 11/27/2024 XR, chest, [address] view [address], [place], [address], 12/01/2024 13:42:50 11/27/2024 XR, foot, [address] view completed [address], [place], [address], 12/01/2024 13:42:50 Procedure Notes None recorded. Medical Equipment None Reported. Allergies No known drug allergies Medications Name Sig Start Date Stop Date Status Note LastModified by Organization Details LastModified Time prednisone 20 mg tablet TAKE 2 TABLETS BY MOUTH DAILY FOR 5 DAYS 08/18 completed Not Available Not Available Not Available [...] INHALE 2 PUFFS BY MOUTH TWICE DAILY active Not Available Not Available No t Available Symbicort 80 mcg-4.5 mcg/actuati on HFA aerosol inhaler INHALE 2 PUFFS BY MOUTH TWICE DAILY 08/18 completed Not Available Not Available Not Available potassium chloride ER 20 mEq tablet,exte nded release Take 1 tablet twice a day by oral route for 3 days. 2023 active Not Available Not Available Not Avai lable Spiriva Respimat 2.5 mcg/actuati on solution for inhalation INHALE 2 PUFFS BY MOUTH EVERY DAY active Not Available Not Available No t Available Breztri Aerosphere 160 mcg-9mcg-4. 8mcg/actuat ion HFA aerosol inhaler INHALE 2 PUFFS BY MOUTH TWICE DAILY active Not Available Not Available No t Available Vitals Date Recorded Body weight Provider Name an d Address Organization Details Last Updated DateTime 08/18/2024 09364.25 g Alexandre Boyce MA [facility] 2023 16:32:52 Date Recorded Respiratory rate Provider Name a nd Address Organization Details Last Updated DateTime 08/18/2024 20 /min Alexandre Boyce MA [facility] 08/18/2024 16:35:08 Date Recorded Body mass index (BMI) Body height Provider Name and Address Organization Details Last Updated DateTime 08/18/2024 24 kg/m2 180.34 cm Alexandre Boyce MA [facility] 08/18/2024 16:36:57 Date Recorded Oxygen saturation Oxygen saturation in Arterial blood by Pulse oximetry Provider Name and Address Organization Details Last Updated DateTime 08/18/2024 96 % 96 % Alexandre Boyce MA [facility] 08/18/2024 16:40:15 Date Recorded Heart rate Provider Name an d Address Organization Details Last Updated DateTime 08/18/2024 90 /min Alexandre Boyce MA [facility] 2023 16:40:21 Date Recorded Systolic blood pressure Diastolic blood pressure Provider Name and Address Organization Details Last Updated DateTime 08/18/2024 126 mm[Hg] 82 mm[Hg] Alexandre Boyce MA [facility] 08/18/2024 16:41:22 Date Recorded Systolic blood pressure Diastolic blood pressure Provider Name and Address Organization Details Last Updated DateTime 08/18/2024 124 mm[Hg] 80 mm[Hg] ARSLAN Martinez Attn: Accounting,[address] [place], [address], [facility] 08/18/2024 17:19:48 Social History Question Answer Notes LastModified by Organizat ion Details LastModified Time Tobacco Smoking Status Current Every Day Smoker Alexandre Boyce MA null, [facility] 08/18/2024 16:34:55 Do You Have An Advance Directive? No Information n ot available 08/18/2024 What Is Your Level Of Alcohol Consumption? None Information not available 08/18/2024 Are You Blind Or Do You Have Difficulty Seeing? No Information n ot available 08/18/2024 What Is Your Level Of Caffeine Consumption? None Information not available 08/18/2024 In The 14 Days Before Symptom Onset, Have You Had Close Contact With A Laboratory-confirm ed COVID-19 While That Case Was Ill? No Information n ot available 08/18/2024 In The 14 Days Before Symptom Onset, Have You Had Close Contact With A Person Who Is Under Investigation For COVID-19 While That Person Was Ill? No Information not available 08/18/2024 Have You Been To An Area Known To Be High Risk For COVID-19? No Information not available 08/18/2024 Are You Deaf Or Do You Have Serious Difficulty Hearing? No Information not available 08/18/2024 What Type Of Diet Are You Following? REGULAR Information n ot available 08/18/2024 Are There Any Guns Present In Your Home? No Information not available 08/18/2024 What Was The Date Of Your Most Recent Tobacco Screening? 08/18/2024 Information not available 08/18/2024 What Is Your Current Pack Years? 10-19packyea rs Information not available 08/18/2024 Do You Use Your Seat Belt Or Car Seat Routinely? Yes Information not available 08/18/2024 Do You Have Smoke And Carbon Monoxide Detectors In Your Home? Yes Information not available 08/18/2024 How Much Tobacco Do You Smoke? 0.5 PPD Information not available 08/18/2024 Do You Use Any Illicit Or Recreational Drugs? No Information not available 08/18/2024 Do You Use Sunscreen Routinely? No Information not available 08/18/2024 Has Tobacco Cessation Counseling Been Provided? Yes Information not available 08/18/2024 On What Date Was Tobacco Cessation Counseling Provided? 08/18/2024 Information not available 08/18/2024 Do You Or Have You Ever Used Any Other Forms Of Tobacco Or Nicotine? No Information not available 08/18/2024 Sex: Male Functional Status Question Answer Note LastModified by Organizat ion Details LastModified Time Are you able to care for yourself? Yes Information not available 08/18/2024 What is your exercise level? Occasional walks/ breathing exercise Information not available 08/18/2024 Mental Status None recorded. Family History Relationship Description Onset Age of this Age Resolved Age Notes LastModified by Organization Details LastModified Time Mother Family history of breast cancer [email or web address] Not available 2023 16:34:23 Father Coronary arterioscler osis tcarterma Not available 2023 16:34:29 Father Heart disease tcarterma Not available 2023 16:34:37 Medical History Condition Response Coronary Artery Disease N Other N High Blood Pressure N Atrial Fibrillation N Kidney or Bladder Problems N Thyroid Problems N GI Problems N Depression N COPD Y Blood Clots N Have you had a mammogram in the last yea r? N Skin Problems N Anemia N Heart Attack ([place]) N Anxiety Disorder N Diabetes N Muscle, Joint, or Bone Problems N Seizures/Epilepsy N Have you had a colonoscopy in the last 1 0 years? N Acid Reflux (GERD) N Cancer N Stroke N Asthma N Allergies N Have you had a PSA blood test in the las t year? N High Cholesterol N Hepatitis N Liver Disease N Headaches N Heart Failure N Osteoporosis N Immunizations Vaccine Type Date Status Note Provider Nam e and Address Organization Details Recorded Time COVID-19 vaccine, vector-nr, rS-Ad26, PF, 0.5 mL 01/13/2021 completed Alexandre Boyce MA [facility], [place] - [facility] 08/18/2024 16:35:25 Past Encounters Encounter ID Performer Location Encounter Start Date Encounter Closed Date Diagnosis/Indication Diagnosis SNOMED-CT Code Diagnosis ICD10 Code Diagnosis Note [id number] [facility] [place] [address] [place] [address] 08/18/2024 16:02:29 08/24/2024 14:32:20 Smoker 93286097 F17.200 Smoking cessation discussed Chronic ob structive pulmonary disease 94204746 J44.9 COPD, stable at this time on Breztri and albuterol Chiari malformation 2531 32519 Q07.00 History noted of Chiari malformati on Cholesterol screening 27 6422893 Z13.220 Fasting lipid panel due Diabetes m ellitus screening 364635197 Z13.1 A1c diabetes screening ordered Long-term drug therapy 224953965 Z79.891 Routine labs ordered for baseline evaluation Positive s creening for depression on PHQ-9 (Patient Health Questionnaire 9) 3528003807 87755 Z13.31 Patient scored a 5 on screening today and feels quite stable with no acute concerns in mental health Health Concerns Section Related Observation LastModified by Organization Detai ls LastModified Time None Recorded Concern Status LastModified by Organization Details LastModified Time None Recorded Advance Directives Directive N: Payers Encounter Date Sequence Insurance Name Policy Number Policy Ruiz Covered Member ID Ruiz Member ID Guarantor Name 08/18/2024 1 [facility] ON OR AFTER 05/11/21 (MEDICAID REPLACEMENT - HMO) [id number] Nic Soto [id number] Nic Soto Notes Date Note Type Note Provider Name and Address Organization Details Recorded Time 08/18/2024 text/html PFTs from Dr. Milan completed and diagnosed with stage 3 copd, 30-32% and given oxygen for sleep. one return visit to DR. Milan. Completing cardiopulmonary therapy and home exercises that has improved his O2 sat to 93%. Using home spirometer. He stopped cardiopulmonary therapy because of pleurisy, now restarting after 2 months and getting ready to go 2 times per week. Patient reports a history of a Chiari malformation that has been quite stable and no surgical intervention was ever needed. Patient is interested in getting an updated lab work. ARSLAN Martinez Attn: Accounting,[address] [facility], [place], [address], [facility] - [facility] 09/10/2024 09:12:44
--- OUTSIDE RECORDS SUMMARY | 2024-12-03 07:15 | XMS_ITS | CONTINUITY OF CARE DOCUMENT ---
Author Name raman camargo Address Unknown Organization [facility] Address [address] [place] [address] Phone [phone] Care Team Providers Care Power Plant Technician Name Role Phone Chicho ALVAREZ, Radha Unavailable ISRAEL WEBER MD Unavailable [phone] ISRAEL WEBER MD Unavailable [phone] PROBLEMS Condition Status Date Provider Notes Tobacco abuse active Radha Valentino MD Shortness of breath active Radha Bender Family Hx heart disease active Radha kelly MD Chiari malformation active Radha Bender Cardiology examination active Radha gregorio MD ENCOUNTERS Date Type Provider Location Encounter Diag nosis - In-person encounter Office Visit Radha Valentino MD [facility] Cardiology examinationTobacco abuseShortness of breathFamily Hx heart diseaseChiari malformation VITAL SIGNS Date Observation Value Provider Body Mass Index (Ratio) 23.46 kg/m2 Byron Valentino MD blood pressure, diastolic 86 mm[Hg] Lauren nkLogic blood pressure, systolic 130 mm[Hg] Susan kLogic pulse rate 96 /min Ken Perazada y blood pressure, cuff size regular Ja rret blood pressure, diastolic 86 mm[Hg] Ja rret blood pressure, systolic 130 mm[Hg] Concepcion woodward height E&M 72 [in_i] Ken y oxygen saturation, oximetry 91 % Ken respiratory rate E&M 16 /min Ken weight E&M 173 [lb_av] Ken y ALLERGIES No Known Drug Allergies HISTORY OF MEDICATION USE Medication Status Instructions Dates Provider Indications Com ments Symbicort 80-4.5 mcg/actuation HFA aerosol inhaler active albuterol sulfate 90 mcg/actuation HFA aerosol inhaler active SOCIAL HISTORY Date Observation Value Provider smoking history, total pack/day 1 cigarette use yes Ken ay smoking status Current every day smoker J [facility] INSURANCE PROVIDERS Payer name Policy type / Coverage type [place] red republican ID [facility] Medicaid [id number] ADVANCE DIRECTIVES Name Date DISCUSSED - NO DECISION MADE TREATMENT PLAN Date Name Performer Cardiology:Currently smokes 1 ppd C essation encouraged Radha Valentino MD Cardiology:Started o n symbicort and albuterol inhaler, episodes improve with inhaler use. Pt has felt SOB since he first contracted COVID, states he has contracted COVID several times. SOB episodes gets worse with exertion, difficulty walking long distances and effort tolerance limited. A irway entry reduced biltaerally on exam. Plans to follow with pulmonary at [facility] next month. W jessica will obtain echo. He has upcoming bloodwork and we will request results Radha Valentino MD Date Name Complete Echo HISTORY OF PROCEDURES Procedure Date Procedure Name Provider Procedure Notes S tatus EKG Radha Valentino MD complet ed
== END 2024-11-27 15:32 | disposition home or self-care (01) ==
PROVIDERS: PCP Physician Assistant; Visit Provider Physician Assistant
DX: S92.901A Unspecified fracture of right foot, initial encounter for closed fracture (principal); D72.829 Elevated white blood cell count, unspecified; X58.XXXA Exposure to other specified factors, initial encounter
CPT/HCPCS: 36415; 71046; 73630; 80074; 83615; 85025; 85652; 86038; 86039; 86140; 86592; 86703; G0432

== ENCOUNTER 2024-12-18 15:30 | Outpatient (CLI) | payer OTHER, SELFPAY ==
--- NOTE | ~2024-12-18 | CT_ITS ---
EXAMINATION: CT foot RT wo con DATE: 12/18/2024 15:54 INDICATION: Nondisplaced fracture of the fifth metatarsal TECHNIQUE: High resolution computed tomography (CT) of the right foot was performed without intraveno us contrast. Additional sagittal and coronal reconstructions were performed. Automated exposure contr ol and iterative reconstruction technique were employed. The dose-length product was 533.34 mGy-cm. COMPARISON: Right foot radiographs dated 11/27/2024 FINDINGS: Minimally displaced oblique extra articular fracture at the necks of the right fourth and fifth metat arsals. There is mild plantar and lateral angulation of both fractures. There is small amount of call us formation at the margins of the fracture with possible early bridging. There is however still read jacqui discernible lucency along significant portions of the fracture planes. No osteolysis to suggest o steomyelitis. No other fractures identified. 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 Soft tissues are unremarkable. IMPRESSION: 1. Healing with possible early bridging at minimally displaced, mildly angulated extra articular frac ture at the necks of the right fourth and fifth metatarsals. Reviewed, dictated and finalized at location B. WARE TEST AUTOMATION ENGINEER IMPRESSION: 1. Healing with possible early bridging at minimally displaced, mildly angulate d extra articular fracture at the necks of the right fourth and fifth metatarsa ls.
--- OUTSIDE RECORDS SUMMARY | 2024-12-18 15:34 | XMS_ITS | Data Portability ---
Author Organization [facility] Address [address] [place] [address] Care Team Providers Care Inspector Electromechanical Name Role Phone EDVIN LIMA Primary Care Provider Unavailab le Assessment No assessment recorded. Plan of Treatment Reminders Order Date Submit Date Provider Last Modified By Organization Details Last Modified Time Details Appointments ANY 15 2024 03:30P M ARSLAN Martinez Not available Not available Not available Lab CBC w/ auto diff 2023 [facility] (Lab), [address] [place] [address], [address], 10/21/2024 11:45:14 CMP, serum or plasma [address] (Lab), [address] [place] [address], [address], 10/19/2024 14:46:24 vitamin B12 + folate, serum or blood 2023 024 [facility] (Lab), [address] [place] [address], [address], 10/21/2024 11:44:22 TSH + free T4, serum 2023 024 [facility] (Lab), [address] [place] [address], [address], 10/21/2024 11:43:59 lipid panel, serum 2023 [facility] (Lab), [address] [place] [address], [address], 10/21/2024 11:43:33 HbA1c (hemoglo bin A1c), blood 2023 024 [facility] ([facility]), [facility] [address], [place], [address], 10/21/2024 11:43:48 Referral None recorded . Procedures None recorded . Surgeries None recorded . Imaging None recorded . Medication Orders None recorded . Patient TargetsNo targets recorded. Patient Instructions Encounter Date Encounter Id Patient Instructions Last Modified By Organization Details Last Modified Time 08/18/2024 [id number] Quitting Tobacco : Care Instructions [email or web address] Not available 08/18/2024 17:28:18 Reason for Referral None Reported. Results Created Date Observation Date Name Description Value Unit Range Abnormal Flag Note LastModifiedBy Organization Detail LastModifiedTime 11/28/19 25 11/27/2024 XR, chest , 2 view No observ ation record ed. [address], [place], [address], 12/01/2024 13:42:50 11/28/19 25 11/27/2024 XR, foot, 2 view No observ ation record ed. [address], [place], [address], 12/01/2024 13:42:50 Result Notes None recorded. Problems Name Problem SNOMED Code Status Onset Date Resolution Date Notes Provider Name and Address Organization Details Recorded Time Long-term drug therapy Active 2023 ARSLAN Martinez Attn: Renata garcia,[address] [place], [address], [place] 4 09:11:47 Smoker 93166923 Active 2023 ARSLAN Martinez Attn: Renata garcia,[address] [place], [address], [place] [facility] 4 09:11:56 Chronic obstructive pulmonary disease 58040965 Active 2023 ARSLAN Martinez Attn: Renata garcia,[address] [place], [address], [place] [facility] 4 09:12:11 Positive screening for depression on PHQ-9 (Patient Health Questionnai re 9) 1770446068567 00 Active 2023 ARSLAN Martinez Attn: Renata garcia,[address] [facility], [place], [address], [place] [facility] 4 09:12:29 Problem Notes None recorded. Procedures Surgical History None recorded. Imaging Results Imaging Date Name Status LastModified by Organiz ation Details LastModified Time 11/27/2024 XR, chest, 2 view completed [address], [place], [address], 12/01/2024 13:42:50 11/27/2024 XR, foot, 2 view completed [address], [place], [address], 12/01/2024 13:42:50 Procedure Notes None recorded. Medical [...] t Available Vitals Date Recorded Body weight Respiratory rate Body mass index (BMI) Body height Oxygen saturation Oxygen saturation in Arterial blood by Pulse oximetry Heart rate Systolic blood pressure Diastolic blood pressure Provider Name and Address Organization Details Last Updated DateTime 4 56290.2 5 g 20 /min 24 kg/m2 180.34 cm 96 % 96 % 90 /min 126 mm[Hg] 82 mm[Hg] Alexandre Boyce MA [facility] 16:41:22 Date Recorded Systolic blood pressure Diastolic blood pressure Provider Name and Address Organization Details Last Updated DateTime 08/18/2024 124 mm[Hg] 80 mm[Hg] ARSLAN Martinez Attn: Accounting[address] [place], [address], [facility] 08/18/2024 17:19:48 Social History Question Answer Notes LastModified by Organizat ion Details LastModified Time Tobacco Smoking Status Current Every Day Smoker Alexandre Boyce MA null, [facility] 08/18/2024 16:34:55 Do You Have An Advance [...] Response Coronary Artery Disease N Other N Atrial Fibrillation N High Blood Pressure N Depression N COPD Y Blood Clots N Anxiety Disorder N Muscle, Joint, or Bone Problems N Acid Reflux (GERD) N Cancer N Stroke N High Cholesterol N Liver Disease N Headaches N Kidney or Bladder Problems N Thyroid Problems N GI Problems N Have you had a mammogram in the last yea r? N Skin Problems N Anemia N Heart Attack ([place]) N Diabetes N Seizures/Epilepsy N Have you had a colonoscopy in the last 1 0 years? N Asthma N Allergies N Have you had a PSA blood test in the las t year? N Hepatitis N Heart Failure N Osteoporosis N Immunizations Vaccine Type Date Status Note Provider Nam e and Address Organization Details Recorded Time COVID-19 vaccine, vector-nr, rS-Ad26, PF, 0.5 mL 01/13/2021 completed Alexandre Boyce MA [facility] 08/18/2024 16:35:25 Past Encounters Encounter ID Performer Location Encounter Start Date Encounter Closed Date Diagnosis/Indication Diagnosis SNOMED-CT Code Diagnosis ICD10 Code Diagnosis Note [id number] ARSLAN Martinez [facility] [place] [address] [place] [address] 08/18/2024 16:02:29 08/24/2024 14:32:20 Smoker 93816910 F17.200 Smoking cessation discussed Chronic ob structive pulmonary disease 94272962 J44.9 COPD, stable at this time on Breztri and albuterol Chiari malformation 2531 [address]7932 Q07.00 History noted of Chiari malformati on Cholesterol screening 27 2873634 Z13.220 Fasting lipid panel due Diabetes m ellitus screening 468857120 Z13.1 A1c diabetes screening ordered Long-term drug therapy 488174307 Z79.891 Routine labs ordered for baseline evaluation Positive s creening for depression on PHQ-9 (Patient Health Questionnaire 9) 7761878295 59538 Z13.31 Patient scored a 5 on screening [...] Ruiz Member ID Guarantor Name 08/18/2024 1 [facility] - DOS ON OR AFTER 21 (MEDICAID REPLACEMENT - HMO) [id number] Quinnalan [id number] Nic Soto Notes Date Note Type Note [...] lab work. ARSLAN Martinez Attn: Accounting[address] [facility], [place], [address], [place] [facility] 09/10/2024 09:12:44
--- OUTSIDE RECORDS SUMMARY | 2024-12-18 15:34 | XMS_ITS | CONTINUITY OF CARE DOCUMENT ---
Author Name raman camargo Address Unknown Organization [facility] Address [address] [place] [address] Phone [phone] Care Team Providers Care Regulatory Manager Name Role Phone Chicho ALVAREZ, Radha Unavailable ISRAEL WEBER MD Unavailable [phone] ISRAEL WEBER MD Unavailable [phone] PROBLEMS Condition Status Date Provider Notes Cardiology examination active Radha gregorio MD Tobacco abuse active Radha Valentino MD Shortness of breath active Radha Bender Family Hx heart disease active Radha kelly MD Chiari malformation active Radha Bender ENCOUNTERS Date Type Provider Location Encounter Diag nosis - In-person encounter Office Visit Radha Valentino MD [place] [facility] Cardiology examinationTobacco abuseShortness of breathFamily Hx [...] smoking status Current every day smoker J [facility] INSURANCE PROVIDERS Payer name Policy type / Coverage type [place] red green party ID [facility] Medicaid [id number] ADVANCE DIRECTIVES Name Date DISCUSSED - NO [...] exam. Plans to follow with pulmonary at [facility] next month. W jessica will obtain echo. He has upcoming bloodwork and we will request results Radha Valentino MD Date Name Complete Echo HISTORY OF PROCEDURES Procedure Date Procedure Name Provider Procedure Notes S tatus EKG Radha Valentino MD complet ed
--- OUTSIDE RECORDS SUMMARY | 2024-12-18 15:34 | XMS_ITS | Clinical Summary ---
Author Organization [facility] Sherry elam [facility] Address [address] [facility] [place] [address] Care Team Providers Care Butadiene Converter Utility Operator Name Role Phone Unavailable Primary Care Provider Unavailabl e Social History Tobacco Use Types Packs/Day Years Used Date Smoking Tobacco: Never Assessed Sex and Gender Information Value Date Recorded Sex Assigned at Not on file Legal Sex Male 1:25 PM RADIATION ONCOLOGY THERAPIST Gender Identity Not on file Sexual Orientation Not on file Plan of Treatment Upcoming Encounters Date Type Department Care Team (Late st Contact Info) Description 12/21/2024 1:30 PM RADIATION ONCOLOGY THERAPIST Office Visit [facility] Oncology and Hematology - Angel [address] [facility] [address] [place] [address] Nathan Gao MD [address] [facility] [address] [place] [address] Health Maintenance Due Date Last Done Comments DTAP/TDAP/TD VACCINES (1 - Tdap) 2003 HEPATITIS B VACCINES (1 of 3 - 19+ 3-dose series) 2003 Preventative Visit-Managed Medicaid 2003 INFLUENZA VACCINE (#1) 2024 HPV VACCINES Aged Out No longer eligi ble based on patient's age to complete [place] [address] [place]
== END 2024-12-18 15:31 | disposition home or self-care (01) ==
PROVIDERS: PCP Physician Assistant; Visit Provider Physician Assistant Surgical
DX: S92.344D Nondisplaced fracture of fourth metatarsal bone, right foot, subsequent encounter for fracture with routine healing (principal); S92.354D Nondisplaced fracture of fifth metatarsal bone, right foot, subsequent encounter for fracture with routine healing; X58.XXXD Exposure to other specified factors, subsequent encounter
CPT/HCPCS: 73700

== ENCOUNTER 2025-03-02 09:42 | Outpatient (CLI) | payer OTHER, SELFPAY ==
[2025-03-02 09:55] LABS: Basophils Absolute Auto 0.1 K/mm3 (0.0-0.1); Basophils Percent Auto 0.9 % (0.2-1.2); Eosinophils Absolute Auto 0.2 K/mm3 (0-0.3); Eosinophils Percent Auto 1.7 % (0-4.4); Hematocrit 44.7 % (42.0-52.0); Hemoglobin 15.2 g/dL (14.0-18.0); Immature Granulocyte Absolute 0.03 K/mm3 (0.00-0.031); Immature Granulocyte Percent A 0.3 % (0-0.5); Lymphocytes Absolute Auto 2.25 K/mm3 (0.9-3.2); Lymphocytes Percent Auto 22.5 % (18.3-44.2); Mean Corpuscular Hemoglobin 33.7 pg (26-34); Mean Corpuscular Volume 99.1 fl (80-100); Mean Platelet Volume 9.5 fl (7.4-10.4); Monocytes Absolute Auto 0.7 K/mm3 (0.1-0.6); Neutrophils Absolute Auto 6.8 K/mm3 (1.3-6.7); Neutrophils Percent Auto 67.6 % (45.5-73.1); Platelet Count Result 214 k/mm3 (150-375); Red Blood Count 4.51 M/mm3 (4.6-6.20); Red Cell Distribution Width 13.8 % (11.5-14.5)
--- OUTSIDE RECORDS SUMMARY | 2025-03-02 10:48 | XMS_ITS | Clinical Summary ---
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 Active budesonide-for moteroL (Symbicort) 80-4.5 mcg/actuation HFA Aerosol Inhaler 2 Puffs by See Admin Instructions route see administration instructions. Active Spiriva Respimat 2.5 mcg/actuation Mist Take 2 Puffs by inhalation daily. 4 Active Active Problems No known active problems Encounters Date Type Department Care Team Description 02/09/2025 External Device Data STL ABSTRACTION Provider, Abstract 01/19/2025 External Device Data STL ABSTRACTION Provider, Abstract 01/19/2025 External Device Data STL ABSTRACTION Provider, Abstract 01/05/2025 External Device Data STL ABSTRACTION Provider, Abstract 12/22/2024 External Device Data STL ABSTRACTION Provider, Abstract 12/22/2024 External Device Data STL ABSTRACTION Provider, Abstract 12/22/2024 External Device Data STL ABSTRACTION Provider, Abstract 12/21/2024 1:30 PM BUILDING CUSTODIAL SUPERVISOR Office Visit [facility] Oncology and Hematology - Angel [address] [place] [address] Nathan Gao MD Leukocytosis, unspecified type (Primary Dx) from Last 3 Months Family History Medical History Relation Name Comments Heart Disease Father Breast Cancer Mother No Known Problems Sister Relation Name Status Comments Father Alive Mother Alive Sister Alive Social History Tobacco Use Types Packs/Day Years Used Date Smoking Tobacco: Every Day Cigarettes 1 22.3 Started: 11/11/2002 Smokeless Tobacco: Never Tobacco Cessation:Ready to Q uit: Not Asked; Counseling Given: Not Answered Alcohol Use Standard Drinks/Week Comments Never 0 (1 standard drink = 0.6 oz pur e alcohol) Sex and Gender Information Value Date Recorded Sex Assigned at Male 01/26/2025 4:38 PM CDT Legal Sex Male 1:25 PM BUILDING CUSTODIAL SUPERVISOR Gender Identity Male 01/26/2025 4:38 PM CDT Sexual Orientation Straight 01/26/2025 4: 38 PM CDT Last Filed Vital Signs Vital Sign Reading Time Taken Comments Blood Pressure 93/63 12/21/2024 1:37 PM BUILDING CUSTODIAL SUPERVISOR Pulse 68 12/21/2024 1:32 PM BUILDING CUSTODIAL SUPERVISOR Temperature 36.5 C (97.7 F) 12/21/2024 1:32 PM BUILDING CUSTODIAL SUPERVISOR Respiratory Rate 15 12/21/2024 1:32 PM BUILDING CUSTODIAL SUPERVISOR Oxygen Saturation 93% 12/21/2024 1:32 PM BUILDING CUSTODIAL SUPERVISOR Inhaled Oxygen Concentration - - Weight 74.5 kg (164 lb 3.2 oz) 12/21/2024 1:32 P M BUILDING CUSTODIAL SUPERVISOR Height 182.9 cm (6') 12/21/2024 1:32 PM BUILDING CUSTODIAL SUPERVISOR Body Mass Index 22.27 12/21/2024 1:32 PM BUILDING CUSTODIAL SUPERVISOR Plan of Treatment Upcoming Encounters Date Type Department Care Team (Late st Contact Info) Description 03/16/2025 3:30 PM CDT Office Visit [facility] On[facility]ematology - Angel [address] [facility] [address] [place] [address] Nathan Gao MD [address] [facility] [address] [place] [address] Health Maintenance Due Date Last Done Comments DTAP/TDAP/TD VACCINES (1 - Tdap) 2003 HEPATITIS B VACCINES (1 of 3 - 19+ 3-dose series) 2003 Preventative Visit-Managed Medicaid 2003 INFLUENZA VACCINE (#1) 2024 HPV VACCINES Aged Out No longer eligi ble based on patient's age to complete this topic Procedures Procedure Name Priority Date/Time Associated Diagnosis Comments SEDIMENTATION RATE Routine 02/02/2025 3: 10 PM CDT Leukocytosis, unspecified type C-REACTIVE PROTEIN Routine 02/02/2025 3: 10 PM CDT Leukocytosis, unspecified type from Last 3 Months Results * SEDIMENTATION RATE (02/02/2025 3:10 PM CDT) ESR (SEDIMENTATION RATE) 6 < OR = 15 mm/h [facility] Comment: Test Performed at: [facility] [address] [place] [id number] Samantha Farias MD Blood 02/02/2025 3:10 PM CDT 02/02/2025 3:11 PM CDT us Nathan Gao MD HEMATOLOGY ORDERABLES Final Res ult [facility] [phone] [facility] [address] [place] [phone] * C-REACTIVE PROTEIN (02/02/2025 3:10 PM CDT) CRP <3.0 <8.0 mg/L [facility] Comment: Test Performed at: [facility] [address] [place] [address] Samantha Farias MD Blood 02/02/2025 3:10 PM CDT 02/02/2025 3:11 PM CDT us Nathan Gao MD CHEMISTRY ORDERABLES Final Resu lt [facility] [phone] [facility] [address] [place] [phone] from Last 3 Months Insurance [employer] MEDICAID
--- OUTSIDE RECORDS SUMMARY | 2025-03-02 10:48 | XMS_ITS | Data Portability ---
Author Organization [facility] [employer], Main Office Address [address] [place] [address] Assessment Encounter Date Assessment Date Assessment LastModified by Organization Details LastModified Time 03/19/2024 03/19/2024 Assessment: Nicotine smoke: 11/12 ppd 2002-present = 10.5 pack years Cough Dyspnea Plan: The following were reviewed and explained to the patient: primary care/referral note Chest CT 09/12/23 no acute disease, no P. E. Nicotine cessation counseling provided for 4 minutes. [place] for quitting nicotine include getting ready, getting [...] in Quit For Life program Registering at [email or web address] Making a call to 7-226-FWCD-NOW ( ). A strong, clear, personalized message [...] failure or relapse. Patient can enroll in [facility]'s smoking cessation class through Gay Carl RN at . Enrollment is free and classes are held every saturday of the month from 1:30 pm to 2:30 pm at the conference room next to the cafeteria on the ground floor. Cough/Dyspnea workup will be done as follows: Respiratory allergen panel for [facility] Serum IgE Serum total IgG, IgG1, IgG2, IgG3, IgG4 Hljkd-6-ykirkokmkt n phenotype and level TB stimulated gamma [...] 3 Lpm NC Nicotine cessation counseling provided. [place] for quitting nicotine include getting ready, getting [...] in Quit For Life program Registering at [email or web address] Making a call to 0-992-HJWC-NOW ( ). A strong, clear, personalized message [...] failure or relapse. Patient can enroll in [facility]'s smoking cessation class through Gay Carl [...] mL = -4% Nicotine cessation counseling provided. [place] for quitting nicotine include getting ready, getting [...] in Quit For Life program Registering at [email or web address] Making a call to 8-845-MVUV-NOW ( ). A strong, clear, personalized message [...] failure or relapse. Patient can enroll in [facility]'s smoking cessation class through Gay Carl [...] further management. Follow-up: 9 months, April 2025 [facility] Not available 10/29/2024 14:40:40 Plan of Treatment Reminders Order Date Submit Date Provider Last Modified By Organization Details Last Modified Time Details Appointments Any 30 2024 01:30P Lexy Milan MD Not available Not available Not available Lab alpha-1-a ntitrypsi n (aat) phenotype , serum 2023 [email or web address] [place] [address] (Lab), [address] [place], [address], 03/26/2024 11:18:12 BNP (B-type natriuret ic peptide), serum or plasma 2023 024 STEVE [facility] (Lab), [address] [place], [address], 03/19/2024 14:36:12 ige, total, serum 20[email or web address] [place] [address] (Lab), [address] [place], [address], 03/26/2024 11:18:12 tb (M tuberculo sis), ifn-gamma ben, blood 20[email or web address] [place] [address] (Lab), [address] [place], [address], 03/26/2024 11:18:12 eosinophi l count, manual, blood (OBS) 20[email or web address] [place] [address] (Lab), [address] [place], [address], 03/26/2024 11:18:[address] 1+2+3+4, serum [email or web address] [place] [address] (Lab), [address] [place], [address], 03/26/2024 11:18:13 respirato ry allergen panel - central [facility] a 2023 024 [email or web address] 5 [facility] (Lab), [address] [place], [address], 03/26/2024 11:18:13 respirato ry allergen panel - [facility] b 2023 024 [email or web address] 5 [facility] (Lab), [address] [place], [address], 03/26/2024 11:18:13 Referral pulmonary rehab referral 2023 024 2 [facility], [address] [place], [address], 01/12/2025 08:52:21 Procedures None recorded. Surgeries None recorded. Imaging None recorded. Medication Orders albuterol sulfate HFA 90 mcg/actua tion aerosol inhaler 2023 024 STEVE [facility], [address] [place], [place], [id number], 07/29/2024 15:05:04 Symbicort 160 mcg-4.5 mcg/actua tion HFA aerosol inhaler 2023 024 [facility]29, [address], [place], [id number], 10/29/2024 14:42:45 Spiriva Respimat 2.5 mcg/actua tion solution for inhalatio n 2023 024 [facility], [address], [place], [id number], 10/29/2024 14:42:44 albuterol sulfate HFA 90 mcg/actua tion aerosol inhaler 2023 024 [facility], [address], [place], [id number], 04/28/2024 13:20:29 Symbicort 160 mcg-4.5 mcg/actua tion HFA aerosol inhaler 2023 024 ny5 [facility] #07219, [address], [place], [id number], 07/29/2024 15:06:43 Spiriva Respimat 2.5 mcg/actua tion solution for inhalatio n 2023 024 [facility]5 [facility] #31080, [address], [place], [id number], 07/29/2024 15:06:40 Patient TargetsNo targets recorded. Patient Instructions Encounter Date Encounter Id Patient Instructions Last Modified By Organization Details Last Modified Time 03/19/2024 [id number] complete PFT w/ post bronchodilator spirometry* - no auth required STEVE Not available 04/29/2024 09:53:10 07/29/2024 [id number] complete PFT w/ post bronchodilator spirometry* [email or web address] Not available 07/29/2024 15:04:22 Reason for Referral Pulmonary Rehab Referral for Severe chronic obstructive pulmonary disease Referring Physician: Jude Milan, Pulmonary Disease, Encounter Date: 04/28/2024 Results Created Date Observation Date Name Description Value Unit Range Abnormal Flag Note LastModifiedBy Organization Detail LastModifiedTime 04/29/20 24 04/28/2024 compl ete PFT w/ post [facility] hodil ator yanci metry * No observ ation record ed. [facility] ([facility]) [address], [place], [address], 04/29/2024 09:53:10 Result Notes None recorded. Problems Name Problem SNOMED Code Status Onset Date Resolution Date Notes Provider Name and Address Organization Details Recorded Time Smoker 76661555 Active 2023 Jude Milan MD [address], [address], [place], [address], [facility] [employer] [facility] 4 12:14:16 Severe chronic obstructive pulmonary disease 282995555 Active 2023 Jude Milan MD [address], [facility] [address], [place], [address], [facility] [employer] [facility] 4 13:18:34 Notes:Medical History: Bilat eral tinnitus Rhinitis with multiple environmental allergies Eosinophils 420/uL IgE 28 IU/mL AAT PiMM 192 mg% Nicotine use Severe COPD in pulm rehab 2023 Procedure History: None 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 Procedures Surgical History None recorded. Imaging Results Imaging Date Name Status LastModified by Organization Details LastModified Time 04/28/2024 complete PFT w/ post bronchodilator spirometry* completed [facility] ([facility]) [address] [place], [address], 04/29/2024 09:53:10 Procedure Notes None recorded. Medical [...] Address Organization Details Last Updated DateTime 4 08164.2 2 g 24.5 kg/m2 182.88 cm 98.5 [degF] 120 mm[Hg] 64 mm[Hg] Scot Jackson CMA [employer] 4 11:37:36 Date Recorded Heart rate Oxygen saturation Oxygen saturation in Arterial blood by Pulse oximetry Heart rate Respiratory rate Provider Name and Address Organization Details Last Updated DateTime 4 99 /min 95 % 95 % 99 /min 15 /min Jude Milan MD [address] [employer], [place], [address] , [employer] 4 12:20:21 Date Recorded Body height Body mass index (BMI) Body weight Heart rate Systolic blood pressure Diastolic blood pressure Provider Name and Address Organization Details Last Updated DateTime 4 182.88 cm 24.1 kg/m2 80290.4 4 g 58 /min 126 mm[Hg] 78 mm[Hg] Scot Jackson CMA [employer] 4 13:02:43 Date Recorded Body temperature Oxygen saturation Oxygen saturation in Arterial blood by Pulse oximetry Heart rate Respiratory rate Provider Name and Address Organization Details Last Updated DateTime 4 97.5 [degF] 85 % 85 % 58 /min 14 /min Jude Milan MD [address] [employer], [address], [place], [address], [employer] 4 13:28:44 Date Recorded Body height Body mass index (BMI) Body weight Heart rate Body temperature Systolic blood pressure Diastolic blood pressure Provider Name and Address Organization Details Last Updated DateTime 4 182.88 cm 23.2 kg/m2 96270.3 g 75 /min 98 [degF] 124 mm[Hg] 74 mm[Hg] Scot Jackson CMA [employer] 4 14:28:34 Date Recorded Oxygen saturation Oxygen saturation in Arterial blood by Pulse oximetry Heart rate Respiratory rate Provider Name and Address Organization Details Last Updated DateTime 07/29/2024 91 % 91 % 75 /min 15 /min Jude Milan MD [address], [facility] [address], [place], [address], [facility] [employer] 15:01:28 Social History Question Answer Notes LastModified by Organizat ion Details LastModified Time Tobacco Smoking Status Current Every Day Smoker Scot Jackson CMA null, [facility] [employer] 03/19/2024 11:42:07 What Is Your Level Of Alcohol Consumption? None [email or web address] Information not available 03/19/2024 Is Blood Transfusion Acceptable In An Emergency? Yes [email or web address] Information not available 03/19/2024 What Is Your Level Of Caffeine Consumption? Occasional Soda Information not available 03/19/2024 In The 14 Days Before Symptom Onset, Have You Had Close Contact With A Laboratory-confi rmed COVID-19 While That Case Was Ill? No [email or web address] Information not available 03/19/2024 In The 14 Days Before Symptom Onset, Have You Had Close Contact With A Person Who Is Under Investigation For COVID-19 While That Person Was Ill? No [email or web address] Information not available 03/19/2024 Are You Currently Employed? No [email or web address] Information not available 03/19/2024 What Type Of Diet Are You Following? REGULAR [email or web address] Information not available 03/19/2024 How Many Days Of Moderate To Strenuous Exercise, Like A Brisk Walk, Did You Do In The Last 7 Days? 2 [email or web address] Information not available 03/19/2024 Do You Have Any Pets? Yes 1 Cat Information not available 03/19/2024 What Is Your Relationship Status? Single [email or web address] Information not available 03/19/2024 Do You Have Smoke And Carbon Monoxide Detectors In Your Home? Yes [email or web address] Information not available 03/19/2024 Do You Feel Stressed (tense, Restless, Nervous, Or Anxious, Or Unable To Sleep At Night)? [id number] [email or web address] Information not available 03/19/2024 Do You Use Any Illicit Or Recreational Drugs? Yes Marijuana Edibles [email or web address] Information not available 03/19/2024 How Many Years Have You Smoked Tobacco? 20 [email or web address] Information not available 03/19/2024 Have You Recently Traveled Abroad? No [email or web address] Information not available 03/19/2024 Sex: Unknown Functional Status Question Answer Note LastModified by Organizat ion Details LastModified Time What is your exercise level? Moderate core stretching [email or web address] Information not available 03/19/2024 Mental Status None [...] SNOMED-CT Code Diagnosis ICD10 Code Diagnosis Note [id number] Jude Milan MD [facility] [address] [place] [address] 03/19/2024 11:21:30 03/20/2024 08:44:28 Dyspnea on exertion 44786601 R06.09 R05.9 T78.40XA D89.9 Smoker 85765618 F17.218 F17.219 Z87.385 [id number] MD JAYME Sandoval_[facility]FAEL [facility] [place] [address] [place] [address] 04/28/2024 12:54:52 04/29/2024 08:54:11 Smoker 25117686 F17.218 F17.219 Z87.891 Severe chr onic obstructive pulmonary disease 561707670 J44.9 [id number] Jude Milan MD [facility] [address] [place] [address] 07/29/2024 14:11:45 07/29/2024 15:18:58 Severe chronic obstructive pulmonary disease 504109662 J44.9 Smoker 23682435 F17.218 F17.219 Z87.891 Health Concerns Section Related Observation LastModified by Organization Detai ls LastModified Time None Recorded Concern Status LastModified by Organization Details LastModified Time None Recorded Advance Directives Directive None Recorded Payers Encounter Date Sequence Insurance Name Policy Number Policy Ruiz Covered Member ID Ruiz Member ID Guarantor Name 03/19/2024 1 [facility] (MEDICAID REPLACEMENT - HMO) [id number] Nic Soto [id number] Nic Soto 04/28/2024 1 [facility] (MEDICAID REPLACEMENT - HMO) [id number] Nic Soto [id number] Nic Soto 07/29/2024 1 [facility] - DOS ON OR AFTER 21 (MEDICAID REPLACEMENT - HMO) Nic Soto [id number] Nic Soto Notes Date Note Type Note [...] brisk walkingAlleviating factors: rest Modified [employer] [place] ([employer]C) Dyspnea Scale - Grade 2Grade 0 I only get breathless with strenuous exercise .Grade 1 I get short of breath when hurrying on the level or walking up a slight hill .Grade 2 I walk slower than people of the same age on the level because of breathlessness or have to stop for breath when walking at my own pace on the level .Grade 3 I stop for breath after walking about 100 yards or after a few minutes on the level .Grade 4 I am too breathless to leave the house or I am breathless when dressing . Treatment history: Albuterol nebs as needed [...] slight chance of dozing. Jude Milan MD [address] [place] [address], [facility] [address], [place], [address], [facility] 04/28/2024 13:26:21 04/28/2024 text/html [...] brisk walkingAlleviating factors: rest Modified [employer] [place] (mMRC) Dyspnea Scale - Grade 2Grade 0 I only get breathless with strenuous exercise .Grade 1 I get short of breath when hurrying on the level or walking up a slight hill .Grade 2 I walk slower than people of the same age on the level because of breathlessness or have to stop for breath when walking at my own pace on the level .Grade 3 I stop for breath after walking about 100 yards or after a few minutes on the level .Grade 4 I am too breathless to leave the house or I am breathless when dressing . Treatment history: Albuterol nebs as needed [...] slight chance of dozing. Jude Milan MD [address] [place] [address], [phone], [place] - [facility] [employer] 04/28/2024 17:04:17 07/29/2024 text/html Primary care/Referring provider: Jasvir Jean-Baptiste MD CC: I switched insurance and [employer] is now covered. Patient is here to go over his severe COPD management. Initial development of shortness of breath: uration of shortness of breath: 2 yearsCondition of shortness of breath: stableTiming of shortness of breath: morningFrequency: every hourLimits activities: yesAggravating factors: brisk walkingAlleviating factors: rest Modified [employer] [place] (mMRC) Dyspnea Scale - Grade 2Grade 0 I only get breathless with strenuous exercise .Grade 1 I get short of breath when hurrying on the level or walking up a slight hill .Grade 2 I walk slower than people of the same age on the level because of breathlessness or have to stop for breath when walking at my own pace on the level .Grade 3 I stop for breath after walking about 100 yards or after a few minutes on the level .Grade 4 I am too breathless to leave the house or I am breathless when dressing . Treatment history: Albuterol nebs as needed [...] slight chance of dozing. Jude Milan MD [address] [place] [address], [phone], [place] [facility] 10/29/2024 14:42:40
--- OUTSIDE RECORDS SUMMARY | 2025-03-02 10:48 | XMS_ITS | Data Portability ---
[facility] Address [address] [facility] [place] [address] Care Team Providers Care Stamp Maker Name Role Phone LESTEREDVIN HATCH Primary Care Provider Unavailab le Assessment No assessment recorded. Plan of Treatment Reminders Order Date Submit Date Provider Last Modified By Organization Details Last Modified Time Details Appointments None recorded. Lab CBC w/ auto diff 2023 [facility] (Lab), [address] [place] [address], [address], 4 11:45:14 CMP, serum or plasma [address] (Lab), [address] [place] [address], [address], 4 14:46:24 vitamin B12 + folate, serum or blood 2023 [facility] (Lab), [address] [place] [address], [address], 4 11:44:22 TSH + free T4, serum 2023 [facility] (Lab), [address] [place] [address], [address], 4 11:43:59 lipid panel, serum 2023 [facility] (Lab), [address] [place] [address] [address], [place], [address], 4 11:43:33 HbA1c (hemoglob in A1c), blood 2023 024 [email or web address] (Lab), [facility] [address], [place], [address], 11:43:48 Referral None recorded. Procedures None recorded. Surgeries None recorded. Imaging None recorded. Medication Orders None recorded. Patient TargetsNo targets recorded. Patient Instructions Encounter Date Encounter Id Patient Instructions Last Modified By Organization Details Last Modified Time 08/18/2024 [id number] Quitting Tobacco : Care Instructions [place] [id number] Not available 08/18/2024 17:28:18 Reason for Referral None Reported. Results Created Date Observation Date Name Description Value Unit Range Abnormal Flag Note LastModifiedBy Organization Detail LastModifiedTime 11/28/1911/27/2024 XR, chest , 2 view No observ ation record ed. [address], [place], [address], 12/01/2024 13:42:50 11/28/19 25 11/27/2024 XR, foot, 2 view No observ ation record ed. [email or web address], [place], [address], 12/01/2024 13:42:50 12/18/19 25 12/18/2024 CT, foot, w/o contr ast No observ ation record ed. [email or web address] [address], [place], [address], 12/22/2024 14:06:25 Result Notes None recorded. Problems Name Problem SNOMED Code Status Onset Date Resolution Date Notes Provider Name and Address Organization Details Recorded Time Long-term drug therapy Active 2023 ARSLAN Martinez Attn: Renata garcia,[address] [place], [address], [facility] 09:11:47 Smoker 76989952 Active 2023 ARSLAN Martinez Attn: Renata garcia,[address] [facility], [place], [address], [place] [facility] 4 09:11:56 Chronic obstructive pulmonary disease 88166624 Active 2023 ARSLAN Martinez Attn: Renata garcia,[address] [facility], [place], [address], [place] [facility] 4 09:12:11 Positive screening for depression on PHQ-9 (Patient Health Questionnai re 9) 1434995733956 00 Active 2023 ARSLAN Martinez Attn: Renata garcia,[address] [facility], [place], [address], [place] [facility] 4 09:12:29 Chiari malformatio n 326342122 Active 2024 ARSLAN Martinez Attn: Renata garcia,[address] [facility], [place], [address], [facility] 5 14:05:54 Problem Notes None recorded. Procedures Surgical History None recorded. Imaging Results Imaging Date Name Status LastModified by Organiz ation Details LastModified Time 11/27/2024 XR, chest, 2 view completed [address] [place] [address], [address], 12/01/2024 13:42:50 11/27/2024 XR, foot, 2 view completed [address] [place] [address], [address], 12/01/2024 13:42:50 12/18/2024 CT, foot, w/o contrast completed [address] [place] [address], [address], 12/22/2024 14:06:25 Procedure Notes None recorded. Medical Equipment None [...] Address Organization Details Last Updated DateTime 4 75185.2 5 g 20 /min 24 kg/m2 180.34 cm 96 % 96 % 90 /min 126 mm[Hg] 82 mm[Hg] Alexandre Boyce MA [facility] 16:41:22 Date Recorded Systolic blood pressure Diastolic blood pressure Provider Name and Address Organization Details Last Updated DateTime 08/18/2024 124 mm[Hg] 80 mm[Hg] ARSLAN Martinez Attn: Accounting,[address] [place], [address], [facility] 08/18/2024 17:19:48 Social History Question Answer Notes LastModified by Organizat ion Details LastModified Time Tobacco Smoking Status Current Every Day Smoker Alexandre Boyce MA null, [facility] 08/18/2024 16:34:55 Do You Have An Advance [...] Skin Problems N Anemia N Heart Attack ([place]) N Anxiety Disorder N Diabetes N Muscle, [...] 0.5 mL 01/13/2021 completed Alexandre Boyce MA [facility] 08/18/2024 16:35:25 Past Encounters Encounter ID Performer Location Encounter Start Date Encounter Closed Date Diagnosis/Indication Diagnosis SNOMED-CT Code Diagnosis ICD10 Code Diagnosis Note [id number] ARSLAN Martinez [facility] [place] [address] [place] [address] 08/18/2024 16:02:29 08/24/2024 14:32:20 Smoker 02532409 F17.200 Smoking cessation discussed Chronic ob structive pulmonary disease 90250573 J44.9 COPD, stable at this time on Breztri and albuterol Chiari malformation 2531 [address] Q07.00 History noted of Chiari malformati on Cholesterol screening 27 6132126 Z13.220 Fasting lipid panel due Diabetes m ronenitus screening 240849332 Z13.1 A1c diabetes screening ordered Long-term drug therapy 750900296 Z79.891 Routine labs ordered for baseline evaluation Positive s creening for depression on PHQ-9 (Patient Health Questionnaire 9) 5404300288 52200 Z13.31 Patient scored a 5 on screening [...] Ruiz Member ID Guarantor Name 08/18/2024 1 [facility] ON OR AFTER 05/11/21 (MEDICAID REPLACEMENT - HMO) [id number] Nic Soto [id number] Nic Soto Notes Date Note Type Note [...] lab work. ARSLAN Martinez Attn: Accounting[address], [place], [address], [facility] 09/10/2024 09:12:44
--- OUTSIDE RECORDS SUMMARY | 2025-03-02 10:48 | XMS_ITS | CONTINUITY OF CARE DOCUMENT ---
Author Name raman camargo Address Unknown Organization [facility] Address [address] [facility] [address] [place] [address] Phone [phone] Care Team Providers Care Felting Machine Operator Name Role Phone Chicho ALVAREZ, Radha Unavailable ISRAEL WEBER MD Unavailable [phone] ISRAEL WEBER MD Unavailable [phone] PROBLEMS Condition Status Date Provider Notes Cardiology examination active Radha gregorio MD Tobacco abuse active Radha Valentino MD Shortness of breath active Radha Bender Family Hx heart disease active Radha kelly MD Chiari malformation active Radha Bender ENCOUNTERS Date Type Provider Location Encounter Diag nosis - In-person encounter Office Visit Radha Valentino MD [place] [facility] Cardiology examinationTobacco abuseShortness of breathFamily Hx [...] smoking status Current every day smoker J [facility] INSURANCE PROVIDERS Payer name Policy type / Coverage type [place] [employer] party ID [facility] [id number] ADVANCE DIRECTIVES Name Date DISCUSSED - NO [...] exam. Plans to follow with pulmonary at [facility] next month. W jessica will obtain echo. He has upcoming bloodwork and we will request results Radha Valentino MD Date Name Complete Echo HISTORY OF PROCEDURES Procedure Date Procedure Name Provider Procedure Notes S tatus EKG Radha Valentino MD complet ed
[2025-03-02 10:58] LABS: Alanine Aminotransferase 13 U/L (6-50); Albumin Level 4.8 g/dL (3.5-5.1); Alkaline Phosphatase 59 U/L (38-126); Anion Gap 12 mmol/L (4-12); Aspartate Amino Transferase 19 U/L (17-59); Bilirubin,Total 0.4 mg/dL (0.2-1.3); Blood Urea Nitrogen 16 mg/dL (9-20); Calcium 9.4 mg/dL (8.4-10.2); Carbon Dioxide 22 mmol/L (22-30); Chloride 105 mmol/L (98-107); Estimated Glomerular Filt Rate > 60; Glucose 96 mg/dL (65-110); Potassium 3.9 mmol/L (3.4-5.0); Sodium 139 mmol/L (137-145)
== END 2025-03-02 09:43 | disposition home or self-care (01) ==
LOC: ANHLAB 09:43
PROVIDERS: PCP Physician Assistant; Visit Provider Internal Medicine Hematology & Oncology
DX: D72.829 Elevated white blood cell count, unspecified (principal)
CPT/HCPCS: 36415; 80053; 85025; 88184